=== PATIENT | female | born 1960 | race Caucasian/White ===

== ENCOUNTER 2017-08-07 09:20 | Inpatient (IN) | payer OTHER ==
[~2017-08-07] VITALS: Ht 175.3 cm; Wt 132.9 kg
[~2017-08-07 09:20] MED LIST: ATENOLOL50 MG PO; CYCLOBENZAPRINE10 MG PO; DAYPRO600 MG PO; ESTRADIOL1 MG PO; GLUCOPHAGE850 MG PO; LOSARTAN-HCTZ1 EACH PO; METFORMIN HCL500 MG PO; NEURONTIN600 MG PO; OMEPRAZOLE20 MG PO; PERCOCET 5-3251 EACH PO; PREDNISONE20 MG PO; ROBAXIN-750750 MG PO; ROBAXIN500 MG PO; TIZANIDINE HCL4 MG PO; TRAMADOL HCL50 MG PO; VITAMIN D35000 UNI1 PO; ZANAFLEX4 MG PO; ZYRTEC10 MG PO
--- NOTE | 2017-08-13 11:56 | NUR ---
[facility] PT CARE NOTE ATTEMPTED TO CALL PT 08/10/17, NO ANSWER, MESSAGE LEFT. RECIEVED PHONE CALL FROM PT TODAY. THIS IS A 56 YEAR OLD FEMALE PT THAT IS SCHEDULED FOR A LEFT TOTAL KNEE ON 08/14/[address] WM PIZARRO. PT STATES SHE LIVES IN HER [facility] HOME WITH STAIRS TO ENTER IT WITH HER WHO IS GOING TO BE HELPING HER AFTER SURGERY AND HOSPITALIZATION. PT STATES THEY HAVE A TUB/SHOWER COMBINATION AND SHE IS GETTING A SHOWER SEAT. ALREADY HAS A HAND HELD SHOWERHEAD AND HER WAS GETTING HER A FRONT WHEELED WALKER. PT DID HAVE AN APPT AT THE [facility] OP PT AND IS SET UP FOR AN APPT AFTER SHE GETS OUT OF THE HOSPITAL. DENIES FURTHER QUESTIONS, CONCERNS, NEEDS, OR ISSUES. WILL FOLLOW PT DURING HER STAY IN THE HOSPITAL.
--- NOTE | 2017-08-14 09:18 | NUR ---
08/14/17 0918 Ruby Vides REPORT FROM PHOTOGRAPH EDITOR.
--- NOTE | 2017-08-14 11:17 | NUR ---
PT TO FLOOR ON STRETCHER WITH RN LUIS AND . PT AWAKE BUT DROWSY. EASILY AWAKENS TO VOICE. ANSWERED ALL QUESTIONS. DENIES PAIN. SENSATION TO L1. CAN MOVE RIGHT LEG. IVF @125. DENIES NEED TO VOID. WATER AT BEDSIDE. DOES NOT WANT ANY YET. DENIES NAUSEA.
--- NOTE | 2017-08-14 13:24 | NUR ---
PT VITALS AND SITE ASSESSED AGAIN. STILL CDI. VS STABLE. ADMINISTERED MEDS.PT DENIES PAIN OR NAUSEA. HAS NOW TAKEN A FEW SMALL SIPS OF WATER.
--- NOTE | 2017-08-14 14:04 | NUR ---
MET WITH PT'S DAUGHTER AND STUART IN LONG. STUART A LITTLE ANXIOUS, DAUGHTER COPING WELL. OUTLINED MORNING, THEY SEEMED TO BE GOING TO BREAKFAST. WILL CONTINUE TO FOLLOW
--- NOTE | 2017-08-14 14:15 | OR ---
[facility] [address], [place] [address] Signed DATE OF PROCEDURE: 08/14/17 PREOPERATIVE DIAGNOSIS: End-stage osteoarthritis of the left knee. POSTOPERATIVE DIAGNOSIS: End-stage osteoarthritis of the left knee. PROCEDURE Left total knee arthroplasty with an Attune posterior stabilized total knee. We used a size 7 TS femur, a size 7 tibial tray, a 5 mm PS fixed bearing poly and a 35 mm all poly patella. SURGEON: Rob Pizarro MD. ANESTHESIA Spinal with sedation. There were no specimens or complications. TOURNIQUET TIME: 90 minutes. DESCRIPTION OF PROCEDURE The patient was taken to the operating room. After anesthesia was induced and the airway gently supported, left lower extremity was positioned, prepped and draped in a routine sterile fashion. The leg was exsanguinated with an Esmarch bandage. Pneumatic tourniquet was inflated to 300 mmHg pressure. A straight anterior approach was made to the knee, beginning at the tibial tubercle extending over the anterior aspect of the patella and proximally over the distal quad tendon. The skin was divided sharply. Subcutaneous tissue was bluntly spread and a small medial flap was created. An anteromedial arthrotomy was performed. The patella was turned on edge and about 10 mm were trimmed off the posterior aspect of the patella. We then placed the lollipop up for the 35 mm patellar button over the patella and was happy with the alignment and coverage. We then placed drill holes for the 35 mm all poly patella. We then snapped the trial into place and finally we had completely reconstituted the patellar height. The trial was then removed. The patella was slid into the lateral recess and the knee was gently flexed. Using the [employer] navigation system, we digitized the distal aspect of the femur. Distal femoral resection was accomplished in neutral varus valgus about 3 degrees of flexion and removing about 11 mm off the medial side. After removing the distal wafers, the navigation system was transitioned to the proximal tibia. Again, following the [place] navigation prompts, we digitized the proximal tibia and we then resected the proximal tibia in neutral varus valgus, about 3 degrees of posterior slope per the Attune surgical protocol and removing about 5 mm off the medial side. The tibial wafer was then removed and sized to be a size 7. We then placed the femoral sizing jig on the distal Electronically Signed By: ROB PIZARRO MD 08/14/17 1415 PATIENT NAME: MONICO ALBRIGHT OPERATIVE REPORT DATE OF : 62 PHYSICIAN: ROB PIZARRO MD REPORT #: [id number] REPORT IS CONFIDENTIAL AND NOT TO BE RELEASED WITHOUT AUTHORIZATION [facility] [address], [place] [address] Signed femur and again the femur sized to a size 7. The 4 in 1 cutting block was placed on the distal femur and anterior, posterior, and chamfer cuts were made. The notch cutting block was then centered so had good coverage of the prosthesis and the notch was cut out. The femoral trial was placed on the distal femur and the lug holes were drilled. We then placed the tibial trial in the proximal tibia with a 5 mm poly. We had good alignment, good position, excellent stability. The previous flexion contracture appeared to be completely corrected. We marked the alignment rotational position of the tibial tray and then removed all the trials. The proximal tibia was then prepared using the standard reamer and broach. The knee was copiously irrigated and meticulously dried. Antibiotic cement was mixed and used to secure the tibial component. The femoral component and the patellar component. We placed a 5 mm trial poly in the knee and held the knee in full extension. Once the cement had cured, marginal C mental fights were sought and removed and the knee was copiously irrigated. Again, we had a very snug knee with full extension and excellent flexion. We therefore removed the trial poly, inserted the real 5 mm poly implant and impacted it to the tibial tray. We then irrigated the incision and a routine wound closure was accomplished. A sterile dressing was applied and the patient was awakened and take to the recovery room and arrived in stable condition. Counts were correct and antibiotic protocols were followed. Rob Pizarro MD WFB/Modl /[id number] cc: Hector Lee MD Electronically Signed By: ROB PIZARRO MD 08/14/17 1415 PATIENT NAME: MONICO ALBRIGHT OPERATIVE REPORT DATE OF : 62 PHYSICIAN: ROB PIZARRO MD REPORT #: [id number] REPORT IS CONFIDENTIAL AND NOT TO BE RELEASED WITHOUT AUTHORIZATION
--- NOTE | 2017-08-14 16:46 | NUR ---
PT C/O ITCHING "ALL OVER". GAVE BENADRYL 12.5 MG IV PRN. PT SITTING IN BED WITH HOB ELEVATED.
--- NOTE | 2017-08-14 17:03 | NUR ---
ADMINISTERED 0.6 DILAUIDID FOR 6/10 PAIN AFTER PHYS. THER. UNTIL HOLD IS OFF OF ORAL MEDS. PT SITTING UP EATING DINNER.
--- NOTE | 2017-08-14 18:53 | NUR ---
PT IN BED TALKING TO FAMILY. DENIES NEED FOR PAIN MEDICATION.
--- NOTE | 2017-08-14 19:59 | NUR ---
PT ASSESSMENT COMPLETE. PT RESTING IN BED WITH AT BEDSIDE. PT ALERT AND ORIENTED, PLEASANT AND IN GOOD SPIRITS THIS EVENING. PT DENIES ANY N/V, TOLERATING PO WELL. PT SALINE LOCKED, PATENT AND INTACT. PT RATES PAIN IN LEFT KNEE 02/19, SCHEDULED TORADOL, TYLENOL AND PRN OXYCODONE GIVEN. DRESSING TO LEFT KNEE IS C/D/I, PT HAS GOOD CMS. PT HAS HX NEUROPATHY, STATES NUMBNESS IS BACK TO BASELINE. PT ON ROOM AIR, SATS 96% PER CONTINUOUS PULSE OXIMETER. CALL LIGHT WITHIN REACH. PT DENIES ANY FURTHER NEEDS AT THIS TIME.
--- NOTE | 2017-08-14 20:46 | NUR ---
GOT PATIENT FRESH ICE WATER AND UPDATED BOARDS.
--- NOTE | 2017-08-14 21:50 | NUR ---
ASSISTED PT UP TO BATHROOM WITH x1 ASSIST USING FWW, PT TOLERATED AMBULATION WELL. VOIDING WITHOUT DIFFICULTY. PT BACK IN BED, SCD IN PLACE. PT C/O LEFT KNEE PAIN 06/21, 2 TABS DILAUDID GIVEN WELL ICE PACKS PLACED ON KNEE FOR COMFORT. PT C/O ITCHING, IV BENEDRYL GIVEN. IV PATENT AND INTACT. DRESSING C/D/I. CALL LIGHT WITHIN REACH. PT DENIES ANY FURTHER NEEDS AT THIS TIME.
--- NOTE | 2017-08-15 00:03 | NUR ---
PATIENT DOING WELL. IN BED ASLEEP
--- NOTE | 2017-08-15 00:16 | NUR ---
PT SLEEPING, RR EVEN AND UNLABORED. PT APPEARS COMFORTABLE AT THIS TIME. SATS 93% ON ROOM AIR. CALL LIGHT WITHIN REACH.
--- NOTE | 2017-08-15 01:24 | NUR ---
PT C/O ITCHING, NUBAIN GIVEN. PT RATES LEFT KNEE PAIN 4/10, 2 TABS OXYCODONE GIVEN. DRESSING IS C/D/I, ICE PACKS IN PLACE. CALL LIGHT WITHIN REACH. PT DENIES ANY FURTHER NEEDS AT THIS TIME.
--- NOTE | 2017-08-15 03:33 | NUR ---
PT SLEEPING, RR EVEN AND UNLABORED. PT APPEARS COMFORTABLE AT THIS TIME. SATS 95% ON ROOM AIR. CALL LIGHT WITHIN REACH.
--- NOTE | 2017-08-15 04:45 | NUR ---
PT HAD AN UNEVENTFUL NIGHT. PT AMBULATES WITH x1 ASSIST USING FWW, TOLERATES WELL. PT ON ROOM AIR, SALINE LOCKED, DENIED N/V THIS SHIFT. PT RECEIVING SCHEDULED TYLENOL AND TORADOL FOR PAIN, ALSO GETTING PRN OXYCODONE AND PO DILAUDID. DRESSING C/D/I, ICE PACKS IN PLACE. SCD IN PLACE. PT VOIDING WELL.
--- NOTE | 2017-08-15 07:19 | NUR ---
VISITED WITH PT FOLLOWING SURGERY. RESTING IN BED, WITH TOWEL WRAPPED AROUND HER HEAD. SHE SAID SHE HAS NO PAIN. I ENCOURAGED HER TO TACKLE HER THERAPY HEAD ON AND KNOW THERE WILL BE SOME TOUGH DAYS AHEAD. HAD PRAYER WITH PT, WILL CONTINUE TO FOLLOW NEEDED
--- NOTE | 2017-08-15 07:55 | NUR ---
PATIENT ASLEEP SO I WILL CHECK BACK LATER.
--- NOTE | 2017-08-15 08:24 | NUR ---
PT SITTING UP IN BED EATING BREAKFAST. RATES PAIN 2/10 RIGHT NOW BUT KNOWS IT WILL GO UP WITH PHYSICAL THERAPY. TOOK PRN OXY IN ANTICIPATION. TALKED ABOUT BS CHECKS AND METFORMINA ND GABAPENTIN AND WILL CALL DR PIZARRO TO DISCUSS.
[2017-08-15] MEDS ORDERED: FLONASE ALLERG9.9 ML NAS (10:43)
[2017-08-15] MEDS ORDERED: TRIAMCINOLONE A15 G1 TOP (10:44)
--- NOTE | 2017-08-15 11:00 | NUR ---
PT WORKING WITH PHYS. THER.
--- NOTE | 2017-08-15 11:35 | NUR ---
Medications reconciled by pharmacist using patient's pharmacy records and patient interview. Significant discrepancies found, namely gabapentin dose, 1200mg PO TID vs 300mg TID. Patient also takes metformin, cetirizine, cholecalciferol and tizanidine. The nortriptyline 10mg that was ordered and given at hs is not a current medication for her. I called Dr Nazario's office, left message with sales and marketing director 08/15/[address] @ [address] Nazario or his nurse to call me back to clarify
--- NOTE | 2017-08-15 11:55 | NUR ---
PT AWAKE IN BED. TOOK PT TO BR. UPDATED W/B. EMPTYED GARBAGE. AM CARE. PICKED UP ROOM.
--- NOTE | 2017-08-15 12:01 | NUR ---
PT CONTINUES TO BE NAUSEOUS AND LUNCH HAS ARRIVED. PT ASKED FOR MEDS. GIVEN ZOFRAN AND EMESIS BAG. PT DENIES NEED FOR PAIN MEDICATION.
--- NOTE | 2017-08-15 12:36 | NUR ---
PT RESTING IN BED. SHE MENTIONED THAT SHE HAD A REACTION TO SOME PAIN MEDS, AND HAD A SET BACK TODAY. WORKING TO CHANGE MEDS. OTHERWISE SHE SEEMS TO BE COPING WELL. PT REQUESTED PRAYER, WILL FOLLOW NEEDED
--- NOTE | 2017-08-15 15:55 | NUR ---
ASSISTED PT BACK TO BED AFTER SITTING IN CHAIR SINCE FLOORING MACHINE OPERATOR. PT ASKED FOR PAIN MEDS AND TUMS. CALLED DR PIZARRO AND HE VERBALY ORDERED TWO TUMS NOW. ADMINISTERED TO PT ALONG WITH PAIN MEDS AND ZOFRAN FOR NAUSEA.
--- NOTE | 2017-08-15 16:40 | NUR ---
PT RESTING IN BED WITH TV ON.
--- NOTE | 2017-08-15 18:50 | NUR ---
patient resting in bed watching TV with in room. call button in reach. no other needs at this time. fresh ice water given.
--- NOTE | 2017-08-15 19:43 | NUR ---
PATIENT SITTING UP WATCHING TV. WHITEBOARD UPDATED, ROOM TIDIED. GOT NEW ICE PACKS AND PUT ON/ AROUND AFFECTED KNEE.
--- NOTE | 2017-08-15 20:00 | NUR ---
RECEIVED REPORT AT 1900. FOUND PT IN BED WATCHING TV. PT DENIED PAIN AT THAT TIME. PT SEEMED IN GOOD SPIRITS.
--- NOTE | 2017-08-15 22:27 | NUR ---
V/S ARE WDL, PAIN IS WELL CONTROLLED WITH PRN PAIN MEDS AVAILABLE. ALL LOBES ARE CLEAR, PT IS PASSING GAS, DRESSING ON L KNEE IS C/D/I, ICE PACKS X3 APPLIED. I&O ARE ADEQUATE. NO NEW ISSUES NOTED
--- NOTE | 2017-08-15 23:57 | NUR ---
PT IS SLEEPING AT THIS TIME.
--- NOTE | 2017-08-15 23:59 | NUR ---
PATIENT IN BED SLEEPING.
--- NOTE | 2017-08-16 02:00 | NUR ---
PT IS SLEEPING
--- NOTE | 2017-08-16 02:10 | NUR ---
PT RECEIVED 5MG OF OXY AND SCHEDULED TORADOL IV. PT AT THIS TIME IS SLEEPING.
--- NOTE | 2017-08-16 02:10 | NUR ---
NURSE IN ROOM
--- NOTE | 2017-08-16 03:43 | NUR ---
PATIENT SLEEPING COMFORTABLY
--- NOTE | 2017-08-16 04:00 | NUR ---
PT IS SLEEPING
--- NOTE | 2017-08-16 04:44 | NUR ---
REFILLED PATIENT WATER, MADE NEW ICE PACKS FOR AFFECTED KNEE.
--- NOTE | 2017-08-16 05:32 | NUR ---
PT SLEPT MOST OF THE NIGHT. PAIN WAS WELL CONTROLLED WITH PRN AND SCHEDULED PAIN MEDS. V/S ARE WDL, I&O ARE ADEQUATE, DRESSING ON LEFT KNEE IS C/D/I, ICE PACKS X3 ON LEFT KNEE. NO NEW ISSUES NOTED.
--- NOTE | 2017-08-16 07:15 | NUR ---
BEDSIDE REPORT RECEIVED FROM MORAIMA FULLER. PT AWAKE, SITTING UP IN BED. PT DENIES NAUSEA. STATES PAIN IS 2/10, CRAMPING IN KNEE. PT HAS ORDERED BREAKFAST, CALL LIGHT IN LAP. NO ADDITIONAL REQUESTS AT THIS TIME.
--- NOTE | 2017-08-16 07:58 | NUR ---
IN PT'S ROOM. PT CBG 112. PT BREAKFAST TRAY IN ROOM. CALL LIGHT IN REACH.
--- NOTE | 2017-08-16 09:20 | NUR ---
PT. COMPLAINED OF NAUSEA. ADMINISTERED ZOFRAN. WILL REASSESS. PT. SITTING UPRIGHT IN BED WITH IN ROOM.
--- NOTE | 2017-08-16 10:15 | NUR ---
MORNING ASSESSMENT COMPLETE. PT SITTING UP IN BED, STATING STOMACH "STILL QUEASY, TRYING TO REST". PT CONTINUES TO DENY PAIN AT THIS TIME. LUNGS CLEAR THROUGHOUT. PT HAS ACTIVE BOWEL TONES X 4. PT ALERT AND ORIENTED X 3. PT HAS NO REQUESTS AT THIS TIME, HAS CALL LIGHT IN REACH.
--- NOTE | 2017-08-16 11:20 | NUR ---
PT. UP WITH PHYSICAL THERAPY ON NUSTEP. TOLERATED WELL. DID NOT COMPLAIN OF PAIN. NOW BACK IN ROOM SITTING IN CHAIR WITH CALL LIGHT IN REACH.
--- NOTE | 2017-08-16 11:40 | NUR ---
PT IS UP AND HEADED TO Jodi CONNELL WITH THERAPIST TRACEE. SHE MENTIONED HOW GOOD IT FEELS TO BE UP AND WALKING. HE WAS VERY AFFIRMING, WILL CONTINUE TO FOLLOW NEEDED
[2017-08-16] MEDS ORDERED: XARELTO10 MG PO (12:02)
[2017-08-16] MEDS ORDERED: OXYCODONE HCL10 MG PO (12:03)
[2017-08-16] MEDS ORDERED: DILAUDID4 MG PO (12:04)
[2017-08-16] MEDS ORDERED: ZOFRAN ODT4 MG SL (12:04)
--- NOTE | 2017-08-16 12:08 | NUR ---
INFORMED PT THAT DISCHARGE ORDERS ARE IN PLACE. PT STATES SHE IS READY TO LEAVE, WILL CALL FOR RIDE. PT STATING PAIN IS OKAY, REFUSES OXYCODONE ADMINISTRATION AT THIS TIME. PT STILL EXPERIENCING SOME NAUSEA, ABLE TO EAT 75 % OF LUNCH. EDUCATED THAT ZOFRAN PRESCRIPTION IS ORDERED FOR DISCHARGE. PT HAS CALL LIGHT IN REACH.
--- NOTE | 2017-08-16 12:27 | NUR ---
PHARMACIST ROSEANN IN PT ROOM PROVIDING DISHCARGE INSTRUCTIONS REGARDING MEDICATIONS, SIDE EFFECTS, RISKS, PRECAUTIONS VERBALLY AND WRITTEN. PT ASKING QUESTIONS, QUESTIONS ANSWERED. IV TORADOL ADMINISTERED, PT STATING PAIN IS 3/10 AT THIS TIME.
--- NOTE | 2017-08-17 11:59 | NUR ---
FAXED CHART NOTES INCLUDING FACESHEET, ORDER, H AND P, OP NOTE, PROG NOTES, IMAGING, PT EVAL AND NOTES TO [facility] OP PT. CALLED AND SPOKE WITH PRICILLA.
--- NOTE | 2017-08-21 07:37 | DS ---
[facility] [address] [place], [place] [address] Signed DATE OF DISCHARGE: 08/16/17 FINAL DIAGNOSIS AT DISCHARGE: End-stage osteoarthritis, left knee. PROCEDURE: Left total knee arthroplasty. ATTENDING PHYSICIAN: Real Nazario MD HISTORY OF PRESENT ILLNESS The patient has a long history of degenerative arthritis in both knees. She previously had a successful right total knee arthroplasty and presented for a left total knee arthroplasty. She no longer had significant symptomatic relief with numerous conservative modalities. HOSPITAL COURSE The patient was admitted to Day Surgery. On the 14 of August, she was taken to the operating room. She underwent placement of an Attune posterior stabilized total knee arthroplasty with a size 7 PS femoral component, a size 7 tibial tray, a 5 mm PS poly and a 35 mm patellar button. Postoperatively, she has done well. She currently gets adequate pain relief by alternating oral Dilaudid and oral Oxycodone. She has had a little nausea, but that has apparently been well controlled with the Zofran. She has passed all of her physical therapy performance criteria and is ready to go home. Discharge her home to activity as tolerated with a referral to outpatient physical therapy 3 times a week for 4 weeks. We will ask to see us back in 4 weeks and we will continue her on Oxycodone and Dilaudid for pain and order her some Zofran ODT to be taken as needed for nausea. We will also keep on Xarelto 10 mg once a day for DVT prophylaxis. MD ISHA MccraryB/Modl /[id number] Electronically Signed By: REAL NAZARIO MD 08/21/17 0737 PATIENT NAME: MONICO ALBRIGHT DISCHARGE SUMMARY DATE OF : 62 PHYSICIAN: REAL NAZARIO MD REPORT #: [id number] REPORT IS CONFIDENTIAL AND NOT TO BE RELEASED WITHOUT AUTHORIZATION [address] [address] Signed cc: Hector Lee MD Electronically Signed By: REAL NAZARIO MD 08/21/17 0737 PATIENT NAME: MONICO ALBRIGHT DISCHARGE SUMMARY DATE OF : 62 PHYSICIAN: REAL NAZARIO MD REPORT #: [id number] REPORT IS CONFIDENTIAL AND NOT TO BE RELEASED WITHOUT AUTHORIZATION
== END 2017-08-16 12:45 | disposition home or self-care (01) | DRG 470 ==
LOC: DSVR 08-14 05:40 → MS 08-14 06:45
PROVIDERS: ADMIT Orthopaedic Surgery
PROC: 0SRD0J9 Replacement of Left Knee Joint with Synthetic Substitute, Cemented, Open Approach (ICD-10-PCS; principal; 2017-08-14 06:45)
DX: M17.12 Unilateral primary osteoarthritis, left knee (principal)
CPT/HCPCS: 01402; 36415; 73560; 80048; 85025; 90674; 97110; 97116; 97161; 97162; C1713; C1776; G0008; J0690; J1170; J1200; J1885; J2274; J2300; J2405; J2704; J2765; J3010; J7120

== ENCOUNTER 2021-04-04 22:53 | Emergency (ER) | payer BC, SELFPAY ==
[~2021-04-04] VITALS: Ht 175.3 cm; Wt 118.2 kg
[~2021-04-04 22:53] MED LIST changes: +DILAUDID4 MG PO; +FLONASE ALLERG9.9 ML NAS; +OXYCODONE HCL10 MG PO; +TRIAMCINOLONE A15 G1 TOP; +XARELTO10 MG PO; +ZOFRAN ODT4 MG SL
--- OUTSIDE RECORDS SUMMARY | 2021-04-04 22:56 | XMS ---
PreManage Notification: MONICO ALBRIGHT Security Traveling Crane Operator Events No recent Security Events currently on file [facility] There are no care providers on record at this time. Jillain has no Care Guidelines for this patient. April VISIT COUNT (12 MO.) 1 [facility] TOTAL 1 NOTE: Visits indicate total known visits. ED/UCC VISIT TRACKING (12 MO.) 04/04/2021 22:[address] [place] TYPE: Emergency COMPLAINT: - BACK PAIN INPATIENT VISIT TRACKING (12 MO.) No inpatient visits to display in this time frame [email or web address]
[2021-04-05] MEDS ORDERED: PERCOCET 5-3251 EACH PO (00:23)
== END 2021-04-05 00:58 | disposition home or self-care (01) ==
LOC: ED 22:53
DX: M54.5 Low back pain (principal); G89.29 Other chronic pain; I10 Essential (primary) hypertension; E11.40 Type 2 diabetes mellitus with diabetic neuropathy, unspecified; Z88.8 Allergy status to other drugs, medicaments and biological substances; Z88.1 Allergy status to other antibiotic agents; Z88.5 Allergy status to narcotic agent; Z79.899 Other long term (current) drug therapy; Z79.84 Long term (current) use of oral hypoglycemic drugs
CPT/HCPCS: 96372; 99283; J1170

== ENCOUNTER 2021-09-03 12:42 | Inpatient (IN) | payer BC ==
[~2021-09-03] VITALS: Ht 175.3 cm; Wt 120.2 kg
[~2021-09-03 12:42] MED LIST changes: +COZAAR50 MG PO; +ESTRACE0.5 MG PO; -GLUCOPHAGE850 MG PO
--- OUTSIDE RECORDS SUMMARY | 2021-09-03 12:46 | XMS ---
Alessia Notification: MONICO ALBRIGHT Security Audio Visual Aide Events No recent Security Events currently on file CRITERIA MET - [facility] CARE PROVIDERS NANI MONTOYA [facility] 04/05/2021-Current PHONE: [phone] Jillian has no Care Guidelines for this patient. April VISIT COUNT (12 MO.) 2 [facility] TOTAL 2 NOTE: Visits indicate total known visits. 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
[2021-09-03] MEDS ORDERED: GLIPIZIDE ER5 MG PO (13:01)
[2021-09-03] MEDS ORDERED: HYDROCHLOROTH12.5 MG PO (13:02)
--- NOTE | 2021-09-03 16:20 | NUR ---
PT ARRIVED TO THE FLOOR VIA STRETCHER FROM ER. PT ABLE TO STAND AND TRANSFER TO BED. PT TOLERATED WELL AND STATED THAT PAIN WAS 4/10.
--- NOTE | 2021-09-03 17:15 | NUR ---
THIS RN IN PTS ROOM TO GIVE PT EVENING MEDS. PT STATES THAT HER BLOOD SUGARS GENERALLY RUN UNDER 100. PTS BLOOD SUGAR 150- PTS VANCO MIXED IN DEXTROSE. PT TO ORDER DINNER. THIS RN OUTLINED PTS CELLULITIS ON LEFT LOWER LEG. PT REPORTS THAT SHE HAS "HEALING DIABETIC WOUNDS" ON LEFT AND RIGHT GREATER TOES.
--- NOTE | 2021-09-03 19:30 | NUR ---
PT SHIFT REPORT RECEIVED FROM NUBIA VALERA. NUBIA VALERA GOING INTO ROOM TO START ORDERED IV FLUID BOLUS.
--- NOTE | 2021-09-03 19:31 | NUR ---
PT WITH DOWNWARD TRENDING BLOOD PRESSURE AND NO URINE OUTPUT. DR SEGURA NOTIFIED. ORDERS TO ADMISNTER 1 L LACTATED RINGER OVER ONE HOUR. READ BACK TO VERIFY. BOLUS STARTED BY PRIMARY NURSE.
--- NOTE | 2021-09-03 20:30 | NUR ---
IV FLUID BOLUS COMPLETED. VS COMPLETED. PT IS DROWSY. NO NEEDS AT THIS TIME. CALL LIGHT IN REACH.
--- NOTE | 2021-09-03 21:52 | NUR ---
ASSESSMENT, VS AND I&O COMPLETED. GCS 15, A&O X4 BUT DROWSY. LUNGS CLEAR, HEART TONES REGULAR. ABD SOFT, NONTENDER, BOWEL TONES ACTIVE. CMS INTACT. LLE HAS 2+ EDEMA, REDNESS WITHIN LINES. PT DENIES PAIN. IVs WNL, CDI, FLUSHED WELL. SCABBED AREAS NOTED ON BOTH FEET AT GREAT TOE. ICE WATER PROVIDED. NO OTHER NEEDS. CALL LIGHT IN REACH.
--- NOTE | 2021-09-04 00:06 | NUR ---
SCHEDULED MED PROVIDED. NO OTHER NEEDS. CALL LIGHT IN REACH.
--- NOTE | 2021-09-04 01:45 | NUR ---
SPOKE TO JULIO FROM TELEPHARMACY REGARDING CURRENT ORDERS FOR IV VANCO- SPECIFICALLY DOSE AND TIME OF ADMINISTRATION BETWEEN LOADING DOSE IN ER AND FIRST DOSE ON MEDSURGE FLOOR. PER JULIO, DOSAGE AND TIME OF VANCO ADMINISTRATION WNL BASED ON pt's AGE, WEIGHT, LAB VALUES, ECT.
--- NOTE | 2021-09-04 02:20 | NUR ---
ASSESSMENT COMPLETED. PT COMPLAINS OF 4/10 PURDY, PRN PAIN MED PROVIDED. PT STATES SHE IS FEELING MUCH BETTER. VS AND I&O COMPLETED. RLE EDEMA 1+, LLE EDEMA 2+ WITH REDNESS, GENERALIZED EDEMA IN HANDS. IVs WNL. NO OTHER NEEDS AT THIS TIME. CALL LIGHT IN REACH.
--- NOTE | 2021-09-04 04:00 | NUR ---
PT RESTING IN BED. CALL LIGHT IN REACH.
--- NOTE | 2021-09-04 05:16 | NUR ---
VS AND I&O COMPLETED. PT UP TO BR, SBA AND BACK TO BED. ICE WATER PROVIDED. NO OTHER NEEDS. CALL LIGHT IN REACH.
--- NOTE | 2021-09-04 07:51 | NUR ---
this rn received report from angi jane. pt appears to be doing better this am, pt still reports having a headache
--- NOTE | 2021-09-04 08:15 | NUR ---
this rn in pts room to give morning meds. pt states that her headache is still there, this rn to provide pt with 650mg of tylenol at this time.
--- NOTE | 2021-09-04 08:30 | NUR ---
PT EATING BREAKFAT IN BED. UPDATED WHITE BOARD. OFFERED WARM CLOTH, WHICH PT DECLINED. PT DECLINED TO GET INTO CHAIR AT THIS TIME, BUT SAYS THEY WOULD LIKE TO BEFORE LUNCH. CALL LIGHT WITHIN REACH. NO FURTHER NEEDS AT THIS TIME. FRESH ICE WATER.
--- NOTE | 2021-09-04 09:16 | NUR ---
ASSISTED PT IN PLUGGING SCD BACK IN. VS AND I&O'S DONE. DAUGHTER IN ROOM. CALL LIGHT WITHIN REACH. NO FURTHER NEEDS AT THIS TIME.
--- NOTE | 2021-09-04 10:30 | NUR ---
THIS RN IN PTS ROOM TO GIVE PT MEDS. PT STATES THAT HER PAIN IN HER LEG IS MINIMAL BUT DOES FEEL "TIGHT" PT DOES REPORT HAVING CHRONIC BACK PAIN. PTS DAUGHTER AT BESIDE AT THIS TIME. THIS RN RECEHCKED PTS TEMP- 99.2- APPEARS TO BE TRENDING DOWN AT THIS TIME.
--- NOTE | 2021-09-04 12:15 | NUR ---
this rn in pts room to give pt her insulin. pt surprised by how high her insulin was. this rn discussed with pt that pt is celena siegel mixed in dextrose- pt stated understanding
--- NOTE | 2021-09-04 14:09 | NUR ---
PT DOES NOT LOOK WELL. PT'S FACE IS FLUSHED. RAPID RR. CALL LIGHT WITHIN REACH, NO FURTHER NEEDS AT THIS TIME. MORAIMA DELACRUZ NOTIFIED OF HIGH TEMP AND OF LITTLE INTAKE.
--- NOTE | 2021-09-04 14:44 | NUR ---
THIS RN RECEIVED REPORT FROM LITTLE RUSSO THAT PT HAD A TEMP OF 102.2 ORALLY. THIS RN IN TO CHECK ON PT. PT STATES THAT SHE IS NOT FEELING WELL. THIS RN RETOOK PTS TEMP AXIALLRY DUE TO PT JUST HAVING SIPPED ON COLD WATER. 102.8 THIS RN NOTIFIED MD- OF CLEAR LUNG SOUNDS AND CURRENT VITALS. NEW ORDER- NO BLOOD CULTURE BUT INCREASE TYLENOL TO 1000MG Q8.
--- NOTE | 2021-09-04 14:50 | NUR ---
THIS RN IN PTS ROOM TO PROVIDE PT WITH 1000MG OF TYLENOL. THIS RN ALSO PROVIDED PT WITH COLD PACKS UNDER HER ARMS AND SOME KERRY CRACKERS FOR COMFORT. PT DENIES NAMINDASEA AT THIS TIME.
--- NOTE | 2021-09-04 16:00 | NUR ---
THIS RN IN PTS ROOM TO RECHECK PTS FEVER. FEVER DOWN TO 99.9. PT APPEARS TO BE FEELING BETER AND IS IN BETTER SPIRITS. THIS RN REFRESHED PTS WATER
--- NOTE | 2021-09-04 16:52 | NUR ---
BED LINENS CHANGED. SHOWER PREPPED FOR PT. PT NOW IN SHOWER. PT INDEPENDENT IN SHOWER. ROOM TIDIED. WILL CHECK BACK IN WITH PT SHORTLY. NO FURTHER NEEDS AT THIS TIME.
--- NOTE | 2021-09-04 18:16 | NUR ---
PT LAYING IN BED WATCHING TV. PT JUST FINISHED DINNER. CALL LIGHT WITHIN REACH, NO FURTHER NEEDS AT THIS TIME.
--- NOTE | 2021-09-04 19:53 | NUR ---
REPORT RECEIVED FROM DAY SHIFT RN. PT LYING IN BED ALERT AND ORIENTED WATCHING TV. DENIES NEEDS AT THIS TIME. WHITE BOARD UPDATED. CALL LIGHT IN REACH.
--- NOTE | 2021-09-04 21:15 | NUR ---
EVENING ASSESSMENT COMPLETE. SCHEDULED MEDS ADMINISTERED PER EMAR. PRN FOR CHRONIC BACK PAIN ADMINISTERED PER PT REQUEST. PT REPORTS DRY COUGH R/T ALLERGIES PREVENING HER FROM RESTING. DR. SEGURA NOTIFIED. NEW ORDERS RECEIVED. LLE RED AND WARM TO TOUCH. REDNESS WITHIN OUTLINE FROM ADMISSION. EDEMA NOTED. CMS INTACT. LLE ELEVATED ON PILLOWS. IV ABX INFUSING WNL. PT DENIES PAIN WITH INFUSION, SITE WNL. FRESH WATER PROVIDED. PT DENIES QUESTIONS OR CONCERNS. CALL LIGHT IN REACH.
--- NOTE | 2021-09-04 22:30 | NUR ---
SCHEDULED MED FOR C/O COUGH ADMINISTERED. PRN FOR COUGH ALSO PROVIDED. PT REPORTS FEELING SWEATY. TEMP DOWN TO 99.5 FROM 99.8. PT REFUSES DRY LINEN/GOWN AT THIS TIME.
--- NOTE | 2021-09-05 00:39 | NUR ---
PT RESTING IN BED WITH EYES CLOSED. RESPIRATIONS EVEN. NO APPARENT DISTRESS.
--- NOTE | 2021-09-05 05:28 | NUR ---
Patient has a temp. of 100. RN was notified and is in room. Call light is in reach.
--- NOTE | 2021-09-05 05:45 | NUR ---
VS AND I&0 COMPLETE. PT DENIES PAIN. ELEVATED TEMP NOTED. PRN ADMINISTERED PER EMAR FOR TEM. LLE ELEVATED ON PILLOW. SCD ON RLE. BREAKFAST ORDERED. PT DENIES FURTHER NEEDS. CALL LIGHT IN REACH.
--- NOTE | 2021-09-05 07:20 | NUR ---
this rn received report from inna jane. pt awake this am, states doing okay just spiked another fever and a bit frustrated with that.
--- NOTE | 2021-09-05 07:52 | NUR ---
this rn in pts room to get pts blood sugarf- wnl- pt states that she is doing okay at this time.
--- NOTE | 2021-09-05 08:25 | NUR ---
PATIENT IS RESTING IN BED. PLACED SCD BACK ON HER RIGHT LEG. PATIENT IS NOW EATING BREAKFAST AND DOES NOT NEED ANYTHING AT THIS TIME. CALL LIGHT IN REACH.
--- NOTE | 2021-09-05 08:40 | NUR ---
HTIS RN IN PTS ROOMTO GIVE PT HER MORING MEDS. PT STATES THAT SHE IS DOING GOOD. FEVER DOWN TO NORMAL LEVELS THIS AM. PTS LEFT LEG APPEARS TO BE IMPROVING DUE TO REDDNESS RECEEDING FROM LINE DRAWN BY THIS RN ON ADMIT. PT REPORTS ONLY PIAN/ TIGHTNESS WHEN SHE STANDS UP DUE TO "BLOOD RUSHING TO THE AREA" PT HAS NO OTHER COMPLAINTS AT THIS TIME
--- NOTE | 2021-09-05 09:38 | NUR ---
SPOKE WITH PATIENT IN ROOM. PATIENT LIVES WITH SPOUSE. HAS 7 STEPS INTO HOME. DOES NOT USE DME. HAS A CANE AT HOME IF NEEDED. DRIVES. IS EMPLOYED. CAN AFFORD MEDS/FOOD/UTILITIES. PLANS TO GO HOME AT DISCHARGE AND FEELS SAFE TO DO SO. PLANNING TO USE [facility] HER CURRENT IS CLOSING. CAN NOT THINK OF ANYTHING NEEDED AT DISCHARGE. FAMILY WILL DRIVE HER HOME. NO BARRIERS AT THIS TIME FOR D/C HOME.
--- NOTE | 2021-09-05 09:44 | NUR ---
ASSISTED PATIENT TO BATHROOM AND BACK TO BED. PATIENT VOIDED 700ML. TOOK PATIENTS VITALS AND ALL WERE IN NORMAL RANGE. SHE DOES NOT NEED ANYTHING AT THIS TIME. CALL LIGHT IN REACH.
[2021-09-05] MEDS ORDERED: EFFEXOR XR37.5 MG PO (10:44)
[2021-09-05] MEDS ORDERED: ARIMIDEX1 MG PO (10:45)
[2021-09-05] MEDS ORDERED: LASIX20 MG PO (11:05)
--- NOTE | 2021-09-05 11:07 | NUR ---
Medications reconciled with pharmacy records and patient interview
--- NOTE | 2021-09-05 13:10 | NUR ---
this rn in pts room to turn off pts antibiotic at this time. pt states that she is doing well and feels good to sit up in the chair for a bit. pt has not pain to report at tthis time.
--- NOTE | 2021-09-05 13:43 | NUR ---
PT REQUESTED I COME BACK LATER, WILL CHECK BACK
--- NOTE | 2021-09-05 14:07 | NUR ---
NOTE FOR VANCOMYCIN DOSING. VANCOMYCIN DOSE CHANGE FROM 1500 MG Q12 TO 1500 MG Q8 DOSING ADJUSTED BASED ON TROUGH OF 9.8 @0830 09/05. THE PEAK LEVEL WAS DRAWN TO ASSESS AUC OF VANCOMYCIN DOSE, THE PEAK LEVEL OF 25.11 @ 1302 09/05 AND AUC WAS CALCULATED 110.6 (goal = 400-600). SINCE THE SSTI IS ALSO CAUSING SIGNS OF SEPSIS THEN THE AUC GOAL OF 400-600 IS THE BEST GOAL FOR THIS PATIENT AND INFECTION, TO PROVIDE GOOD ANTIBIOTIC LEVELS WITH LIMITED TISHA. PRILIMINARY CULTURES WILL BE AVAILABLE TOMORROW (09/06) TO POSSIBLY ROLE IN [facility].
--- NOTE | 2021-09-05 14:18 | NUR ---
PATIENT SITTING UP IN CHAIR. TOOK PATIENTS VITALS AND TEMPERATURE WAS 99.1. I NOTIFIED NURSE NUBIA. PATIENT RECIEVED ICE WATER AND DOES NOT NEED ANYTHING ELSE AT THIS TIME. CALL LIGHT IN REACH.
--- NOTE | 2021-09-05 14:30 | NUR ---
STAFF NURSE WAS CONCERNED THAT PATIENT STATES HER GLUCOSE MONITOR STRIPS ARE NO LONGER CARRIED AT HER PHARMACY AND SHE MAY NEED NEW EQUIPMENT. SPOKE WITH PATIENT. SHE STATES THAT [facility] QUIT CARRYING THEM, BUT SHE CALLED [facility] WHERE SHE IS MOVING HER RX TO AND THEY CAN ORDER THEM. SHE STATES SHE IS SET WITH ALL THAT.
--- NOTE | 2021-09-05 14:34 | NUR ---
PT ALERT, ORIENTED AND SITTING IN CHAIR WITH LLE UP. PT STRUGGLING WITH FEVER APPEARS TO BE ON THE RISE AGAIN. OUTLINE ON LLE MAPPING PROGRESSION OF INFECTION. GAVE ENCOURAGEMENT, PT REQUESTED PRAYER. WILL FOLLOW
--- NOTE | 2021-09-05 14:45 | NUR ---
this rn in pts room to check pts temp- 99.3. pt has no other needs at this time.
--- NOTE | 2021-09-05 15:45 | NUR ---
this rn back in pts room to recheck temp- 101.0- this rn called per call parameters. new orders: blood cultures.
--- NOTE | 2021-09-05 16:15 | NUR ---
this rn in pts room to get first bllod culture and lactic while restarting iv due to pts right ac going bad. pt tolerated well
--- NOTE | 2021-09-05 19:29 | NUR ---
REPORT RECEIVED FROM DAY SHIFT RN. PT LYING IN BED ALERT AND ORIENTED. DENIES NEEDS AT THIS TIME. WHITE BOARD UPDATED. CALL LIGHT IN REACH.
--- NOTE | 2021-09-05 21:00 | NUR ---
EVENING ASSESSMENT COMPLETE. SCHEDULED MEDS ADMINISTERED PER EMAR. PRN GIVEN FOR CHRONIC BACK PAIN. PT AFEBRILE AT THIS TIME. PT REPORTS BEING DIAPHORETIC. COOL CLOTH AND FRESH LINEN PROVIDED. 20G PIV STARTED IN LEFT FOREARM FOR ABX INFUSION. PIV IN LAC DC'D WNL. TIP INTACT. PT MILA WELL. LLE EXTREMITIY ELEVATED ON PILLOWS. SKIN HOT AND RED. REDNESS WITHIN OUTLINE. PT DENIES QUESTIONS OR CONCERNS. CALL LIGHT IN REACH.
--- NOTE | 2021-09-05 22:53 | NUR ---
PT RESTING IN BED WITH EYES CLOSED. RESPIRATIONS EVEN. NO APPARENT DISTRESS.
--- NOTE | 2021-09-06 02:01 | NUR ---
IV ABX INFUSING WNL. PT DENIES PAIN/BURNING WITH INFUSION. PRN FOR COUGH ADMINISTERED PER EMAR. PT AFEBRILE, TEMP 98.3. FRESH WATER PROVIDED. NO FURTHER NEEDS.
--- NOTE | 2021-09-06 06:27 | NUR ---
VS AND I&O OBTAINED. PT AFEBRILE. DENIES PAIN AT REST. LLE ELEVATED. FRESH WATER PROVIDED. DENIES NEEDS. CALL LIGHT IN REACH.
--- NOTE | 2021-09-06 07:20 | NUR ---
REPORT RECEIVED FROM MORAIMA FIGUEROA. THEN ROUNDED ON PT IN MORNING ROUNDS. PT SITTING UP IN BED. TALKATIVE AND APPRECIATIVE OF CARE.
--- NOTE | 2021-09-06 08:25 | NUR ---
MORNING MEDS GIVEN, PT EATING BREAKFAST. IV ROCEPHIN STARTED IN LEFT FOREARM IV. ADVISED TO CALL IF PAINFUL.
--- NOTE | 2021-09-06 09:42 | NUR ---
ASSESSMENT DONE, IV ABX FINISHED. PINKNESS ON LEFT LOWER LEG SPREADING UP TOWARDS KNEE AND DOWN TO FOOT SOME. RIGHT FOREARM IV D/C'D D/T PAIN, INFLAMMATION. PT GIVEN FRESH WATER, RESTING COMFORTABLY.
--- NOTE | 2021-09-06 10:02 | NUR ---
PATIENT IN BED TALKING ON PHONE. VITALS AND I&O'S CHARTED. SHOWER SUPPLIES PROVIDED. CALL LIGHT IN REACH. NO FURTHER NEEDS AT THIS TIME.
--- NOTE | 2021-09-06 10:37 | NUR ---
STARTED VANCO. PT UP TO RESTROOM WITHOUT DIFFICULTY.
--- NOTE | 2021-09-06 12:04 | NUR ---
WASHED PTS HAIR WITH SHOWER CAP, LAB CAME TO DRAW BLLOOD, THEN PT WENT FOR A WALK AROUND THE UNIT. 1 LAP COMPLETED BEFORE RETURNING TO ROOM D/T FATIGUE.
--- NOTE | 2021-09-06 12:20 | NUR ---
PT ALERT, ORIENTED AND SITTING UP IN BED. PT MILDLY FRUSTRATED THAT HER LLE IS NOT IN HER WORDS COOPERATING BETTER. UNDERSTANDS POC, HAD DISCUSSION ABOUT HER INFECTIONS AND SELF HELP THINGS SHE CAN DO FROM THIS POINT ON, FRANCO CHACON NEEDS IN TO SEE PT, HAD PRAYER AND WILL FOLLOW
--- NOTE | 2021-09-06 14:06 | NUR ---
PT UP TO RESTROOM AFTER FINISHING LUNCH IN HER CHAIR. ASSESSMENT DONE. AMBULATED PT AROUND UNIT TWICE BEFORE STOPPING, NO PAIN, LEFT PT SITTING UP IN CHAIR TALKING TO FAMILY ON PHONE.
--- NOTE | 2021-09-06 17:47 | NUR ---
Attemted to see x 2. Will visit tomorrow.
--- NOTE | 2021-09-06 19:05 | NUR ---
MIDLINE ATTEMPT NOTE: ASKED BY NURSING STAFF TO EVALUATE PATIENT FOR A POTENTIAL MIDLINE PLACEMENT. PT HAS IV VANCO INFUSIONS AND EVERYTIME INFUSION STARTS, HER VEINS BECOME RED, IRRITATED, AND HARD TO TOUCH. PT HAS VISIBLE REDNESS TO RIGHT AC AREA FROM PREVIOUS IV SITE. PT HAS AN IV IN LEFT FOREARM THAT IS ALSO NOW RED AND HARD TO TOUCH. MIDLINE ATTEMPTED IN RIGHT BASILIC, AND LEFT BASILIC VEIN W/O SUCCESS. UNABLE TO FULLY ADVANCE CATHETERS INTO VEINS. THEREFORE, U/S GUIDED PERIPHERAL IV PLACED IN RIGHT UPPER ARM CEPHALIC VEIN. BLOOD EASILY ASPIRATED AND IV FLUSHING WELL W/O PAIN TO SITE. PT EDUCATED ON WATCHING IV SITE CLOSELY FOR SIGNS OF IRRITATION.
--- NOTE | 2021-09-06 19:30 | NUR ---
RECEIVED REPORT FROM DAY SHIFT RN. PATIENT IS SITTING ON THE BED EATING DINNER. NO NEEDS NOTED. CALL LIGHT IN REACH.
--- NOTE | 2021-09-06 20:42 | NUR ---
Resperations zoraida 28, RN was notified. Patient vitals, I&Os are complete. Water was refilled. Call light is in reach.
--- NOTE | 2021-09-06 21:24 | NUR ---
PATIENT ASSESMENT COMPLETED. ABX INFUSING PER ORDER. PATIENTS SCHEDULED MEDICATIONS GIVEN PER ORDER. PATIENT DENIES ANY PAIN. PATIENTS SCHEDULED MEDICATIONS GIVEN PER ORDER. PATIENTS LLE IS RED, HOT TO THE TOUCH, AND INFLAMED. REDDENED AREA OUTLINED, IN SOME AREAS THE REDENESS HAS DECREASED FROM LINE AND OTHER AREAS HAS INCREASED UP THE LEG PAST THE LINE. PATIENT DENIES ANY FURTHER NEEDS. CALL LIGHT IN REACH. LLE ELEVATED ON THE PILLOW.
--- NOTE | 2021-09-06 22:41 | NUR ---
PATIENT ASSISTED TO THE RESTROOM. PATIENT WAS ABLE TO VOID. PATIENT HAD BM. PATIENT IS BACK IN BED RESTING. PATIENT IS NOW SL. PRN MEDICATION GIVEN FOR PAIN. PATIENT DENIES ANY FURTHER NEEDS. CALL LIGHT IN REACH.
--- NOTE | 2021-09-07 02:42 | NUR ---
PATIENTS ABX INFUSING. PATIENT IS RESTING IN BED LLE ELEVATED ON PILLOWS. PATIENTS ICE WATER REFILLED. PATIENT DENIES ANY PAIN. PATIENT DENIES ANY NEEDS AT THIS TIME. CALL LIGHT IN REACH.
--- NOTE | 2021-09-07 04:24 | NUR ---
Patient SBA Bathroom. Patient needed assistence trasnfering the IV with her and back to bed. Patient went back to bed and has her left leg elevated like before.
--- NOTE | 2021-09-07 05:58 | NUR ---
PT CALLED, ABX COMPLETE. SL. VS, AND I/O COMPLETE. NO OTHER NEEDS AT THIS TIME.
--- NOTE | 2021-09-07 06:02 | NUR ---
PATIENT IS RESTING IN BED. PATIENTS LLE ELEVATED ON PILLOWS. PATIENT DENIES ANY PAIN. PATIENT DENIES ANY NEEDS. CALL LIGHT IN REACH.
--- NOTE | 2021-09-07 07:20 | NUR ---
pt up walking halls during report this am. pt states that her pain is minmal.
--- NOTE | 2021-09-07 07:42 | NUR ---
PT JUST GOT BACK FROM WALKING THE LONG. PT NOW LAYING IN BED. OFFERED A WARM CLOTH, PT REFUSED. PT SAYS THEY WILL GET INTO THIER CHAIR AT SOME POINT BEFORE BREAKFAST. PT INDEPENDENT. FRESH ICE WATER GIVEN. CALL LIGHT WITHIN REACH, NO FURTHER NEEDS AT THIS TIME.
--- NOTE | 2021-09-07 08:00 | NUR ---
THIS RN IN PTS ROOM TO GIVE PT MORNING MEDS. PT STATES SLIGHT PAIN IN LEFT LEG THAT IS "TIGHT" BUT IT IS TOELRABLE
--- NOTE | 2021-09-07 09:00 | NUR ---
THIS RN BACK IN PTS ROOM TO GIVE PT THE REST OF MORNING MEDS. PT UP TO CHAIR THIS AM AND ASKING TO ELEVATE LEFT FOOT. FOOT ELEVATED. THIS RN AND PT CHATTED ABOUT PTS HOME LIFE- PT VERY PLEASANT LADY.
--- NOTE | 2021-09-07 09:30 | NUR ---
PT IN CHAIR WITH LL PROPPED ON PILLOW. SHEETS WERE DIRTY, SO CHANGED LINENS. ROOM TIDIED. CALL LIGHT WITHIN REACH. NO FURTHER NEEDS AT THIS TIME.
[2021-09-07] MEDS ORDERED: CEPHALEXIN500 MG PO (09:52)
[2021-09-07] MEDS ORDERED: DOXYCYCLINE HY100 MG PO (09:52)
[2021-09-07] MEDS ORDERED: KLOR-CON 1010 MEQ PO (10:39)
--- NOTE | 2021-09-07 13:45 | NUR ---
PT SITTING IN CHAIR, LEGS ELEVATED AND PREPPING FOR DC. PT SAID SHE FEELS MUCH BETTER TODAY, ALL QUESTIONS ANSWERED. GAVE BLESSING WILL FOLLOW
== END 2021-09-07 12:15 | disposition home or self-care (01) | DRG 872 ==
LOC: ED 12:42 → MS 16:05
PROVIDERS: ADMIT Student in an Organized Health Care Education/Training Program; ATTEND Student in an Organized Health Care Education/Training Program
PROC: 05HY33Z Insertion of Infusion Device into Upper Vein, Percutaneous Approach (ICD-10-PCS; principal; 2021-09-07)
DX: A41.9 Sepsis, unspecified organism (principal); L03.116 Cellulitis of left lower limb; Z20.822 Contact with and (suspected) exposure to COVID-19; E11.621 Type 2 diabetes mellitus with foot ulcer; R65.20 Severe sepsis without septic shock; L97.529 Non-pressure chronic ulcer of other part of left foot with unspecified severity; G89.4 Chronic pain syndrome; D69.6 Thrombocytopenia, unspecified; I10 Essential (primary) hypertension; M54.9 Dorsalgia, unspecified; Z68.38 Body mass index [BMI] 38.0-38.9, adult; E11.42 Type 2 diabetes mellitus with diabetic polyneuropathy; Z90.710 Acquired absence of both cervix and uterus; Z90.49 Acquired absence of other specified parts of digestive tract; E66.9 Obesity, unspecified; Z98.890 Other specified postprocedural states; Z96.651 Presence of right artificial knee joint; Z88.5 Allergy status to narcotic agent; Z88.1 Allergy status to other antibiotic agents; Z88.8 Allergy status to other drugs, medicaments and biological substances; Z79.84 Long term (current) use of oral hypoglycemic drugs; Z79.899 Other long term (current) drug therapy
CPT/HCPCS: 36569; 71045; 73630; 80048; 80053; 80202; 80500; 81001; 82565; 83605; 83735; 84520; 85007; 85025; 85049; 87040; 93971; 96365; 96375; 99285-25; A9270; C1751; C9803; J0696; J1815; J2405; J3370; J3475; J7060; J7121; U0003

== ENCOUNTER 2021-09-15 15:36 | Inpatient (IN) | payer BC ==
[~2021-09-15] VITALS: Ht 175.3 cm; Wt 118.0 kg
[~2021-09-15 15:36] MED LIST changes: +ARIMIDEX1 MG PO; +CEPHALEXIN500 MG PO; +DOXYCYCLINE HY100 MG PO; +EFFEXOR XR37.5 MG PO; +GLIPIZIDE ER5 MG PO; +HYDROCHLOROTH12.5 MG PO; +KLOR-CON 1010 MEQ PO; +LASIX20 MG PO
--- OUTSIDE RECORDS SUMMARY | 2021-09-15 15:38 | XMS ---
PreManage Notification: MONICO ALBRIGHT Security Security Systems Technician Events No recent Security Events currently on file CRITERIA MET - [facility] - 2 [facility] in 30 Days [facility] NANI MONTO[facility] 04/05/2021-Current PHONE: [phone] Jillian has no Care Guidelines for this patient. April VISIT COUNT (12 MO.) 3 [facility] TOTAL 3 NOTE: Visits indicate total known visits. ED/UCC VISIT TRACKING (12 MO.) 09/15/2021 15:[address] [place] TYPE: Emergency COMPLAINT: - L LEG PAIN 09/03/2021 12:[address] [place] TYPE: Emergency COMPLAINT: - HIGH FEVER, COUGH, LEFT LEG SWELLING 04/04/2021 22:[address] [place] TYPE: Emergency COMPLAINT: - BACK PAIN DIAGNOSES: - Low back pain - MCFP (current) use of oral hypoglycemic drugs - Allergy status to narcotic agent - Type 2 diabetes mellitus with diabetic neuropathy, unspecified - Other alf (current) drug therapy - Other chronic pain - Allergy status to other antibiotic agents - Allergy status to other drugs, medicaments and biological substances - Essential (primary) hypertension INPATIENT VISIT TRACKING (12 MO.) 09/03/2021 16:[address] [place] TYPE: Medical Surgical COMPLAINT: - CELLULITIS DIAGNOSES: - Acquired absence of other specified parts of digestive tract - Essential (primary) hypertension - Other intermediate accountant (current) drug therapy - Allergy status to other antibiotic agents - Type 2 diabetes mellitus with foot ulcer - Essential (primary) hypertension - Allergy status to other drugs, medicaments and biological substances - Severe sepsis without septic shock - Type 2 diabetes mellitus with diabetic polyneuropathy - Cellulitis of left lower limb - Acquired absence of both cervix and uterus - Presence of right artificial knee joint - Body mass index [BMI] 38.0-38.9, adult - Allergy status to narcotic agent - Non-pressure chronic ulcer of other part of left foot with unspecified severity - Allergy status to narcotic agent - Body mass index [BMI] 38.0-38.9, adult - terminologist (current) use of oral hypoglycemic drugs - terminologist (current) use of oral hypoglycemic drugs - Non-pressure chronic ulcer of other part of left foot with unspecified severity - Cellulitis of left lower limb - Other specified postprocedural states - Allergy status to other drugs, medicaments and biological substances - Type 2 diabetes mellitus with diabetic polyneuropathy - Chronic pain syndrome - Thrombocytopenia, unspecified - Severe sepsis without septic shock - Acquired absence of both cervix and uterus - Chronic pain syndrome - Presence of right artificial knee joint - Obesity, unspecified - Dorsalgia, unspecified - Other specified postprocedural states - Type 2 diabetes mellitus with foot ulcer - Acquired absence of other specified parts of digestive tract - Allergy status to other antibiotic agents - Dorsalgia, unspecified - Thrombocytopenia, unspecified - Other intermediate accountant (current) drug therapy - Obesity, unspecified - Sepsis, unspecified organism [email or web address]
--- NOTE | 2021-09-15 18:04 | NUR ---
REPORT RECEIVED FROM MORAIMA KEENAN. AWAITING PTS ARRIVAL TO FLOOR.
--- NOTE | 2021-09-15 19:18 | NUR ---
PT STILL HAS NOT ARRIVED TO UNIT. REPORT GIVEN TO MORAIMA GE WHO IS ASSUMING CARE OF PT WHEN SHE ARRIVES FROM THE ER.
--- NOTE | 2021-09-15 19:38 | NUR ---
PT BROUGHT OVER TO ROOM 108 VIA STRETCHER WITH VANCOMYCIN INFUSING. PT WAS ABLE TO STAND FROM STRETCHER TO BED WITH STANDBY ASSSIT. VITALS AND WEIGHT OBTAINED. ADMISSION DONE, PRIMARY ASSESSMENT TO BE COMPLETED BY MORAIMA GE.
--- NOTE | 2021-09-15 19:49 | NUR ---
DR HELLER CALLED WITH VERBAL ORDERS FOR A CT SCAN WITH CONTRAST. TALKED TO HARDSCAPE FOREMAN AND SHE WILL TALK TO CLASSER AND ENTER ORDERS.
--- NOTE | 2021-09-15 20:00 | NUR ---
IN TO ASSIST PT TO THE TOILET, PROVIDED SANDWICH BOX, EXTRA ICE WATER AT BEDSIDE PROVIDED, NO FURTHER NEEDS
--- NOTE | 2021-09-15 20:09 | NUR ---
193 - ADMITTED TO ROOM 108 FROM ED. ALERT AND ORIENTED, ON ROOM AIR. R UPPER ARM MIDLINE IN PLACE. VANCOMYCIN STARTED IN ED INFUSING AT THIS TIME. L LEG RED BELOW KNEE WITH LEATHERY PURPLISH LOOKING MID CALF, ELEVATED WITH PILLOWS. FAMILY IN ROOM
--- NOTE | 2021-09-15 20:10 | NUR ---
SPOKE WITH BUYER AGENT AND IMAGING DEPT ABOUT WHICH ORDER TO ENTER FOR LOWER EXT CT WITH CONTRAST. ADVISED THEM TO CALL DR HELLER WITH QUESTIONS PER DR HELLER'S REQUEST.
--- NOTE | 2021-09-15 20:44 | NUR ---
Back from DI via w/c and XR tech
--- NOTE | 2021-09-15 21:00 | NUR ---
pT COOP WITH ASSESMENT, ON ROOM AIR, MENDEL MIDLINE PATENT, RW SL PATENT. L LEG PICTURES OBTAINED WITH HER CONSENT. BLISTER INNER CALF SOME RUPTURED AND ONE LOWER END PROXIMAL TO BIG TOE STILL INTACT, SS DRAINAGE. ELEVATED WITH PILLOWS. L BIG TOE DARK COLORED THICK EDGES AREA, OLD ULCER, PALE DRY SKIN R LOWER BIG TOE PROXIMAL AREA SMALLER DARK COLORED AREA, THICK SKIN, DRY, PALE, COOL TO TOUCH, DRY SKIN, BOTH FEET ARE COOL TO TOUCH, PT STATS THATS NORMAL. WOUND CONSULT TO BE INITIATED BY RN. PRABHAKAR TO BE NOTIFIED FOR POSSIBLE PODIATRY CONSULT. PT COOPERATIVE
--- NOTE | 2021-09-16 00:17 | NUR ---
RESTING, EYES CLOSED, L LEG ELEVATED,
--- NOTE | 2021-09-16 02:14 | NUR ---
Up to br, voided, L leg improved edema and decreased redness below the knee area, elevated, bedding and gown changed, pt was diaphoretic while sleeping, afebrile at this time. did own care, tolerated well, c/o 6/10 L leg pain, medicated with Tylenol 500mg po, call light and fluids at bedside
--- NOTE | 2021-09-16 03:50 | NUR ---
PT CALLED D/T BEEPING IV, BAG WAS COMPLETE IV IS NOW SL. PT DENIES FURTHER NEEDS. CALL LIGHT IS CLOSE.
--- NOTE | 2021-09-16 04:00 | NUR ---
Up to br, voided, back to bed, L leg elevated with pillows, improving, decreased edema and redness. no c/o adverse reaction to vancomycing. tolerating liquids well, no emesis, call light at bedside
--- NOTE | 2021-09-16 05:56 | NUR ---
PT HAS SLEPT OFF AND ON, ON ROOM AIR, CLEAR LUNGS, MENDEL MIDLINE PATENT, NO C.O ADVERSE REACTION TO VANCOMYCIN INFUSION. TOLERATED WELL. SL LWRIST PATENT TOO. CBG WAS 169, RECEIVED 1 UNIT SS INSULIN. L LE CELLULITIS, IMPROVED, DIMINISHED REDNESS, DECREASED EDEMA. HAS BEEN ELEVATED ALL SHIFT, MARKING AND MEASUREMENTS DONE 30CM AT ANKLE AREA, 56.1/2 CM AT MID CALF AREA. BLISTERED AREA LOWER PROXIMAL TO TOES AREA INTACT, PT HAD 2 OTHER RUPTURES BLISTED IN CALF ON ARRIVALS, DRAINAGE HAS DECREAED YELLOW/SS COLORING, NO ODOR. PT HAS 2 DARK COLORED OLD ULCERS IN BOTH TOES. FOOT HALO CRADDLE IN PLACE. WOUND NURSE CONSULT DONE AND MD TO REVIEW TO SEE IF SERVICE DELIVERY DIRECTOR CONSULT IS NEEDED. PT HAS BEEN MEDICATED WITH tYLENOL 500MG PO X2 PER L LEG PAIN, EFFECTIVE. PT INDEPENDENT IN ROOM TOLERATING LIQUIDS WELL, NO EMESIS. PLEASANT AND COOPERATIVE. USES CALL LIGHT, ALERT AND ORIENTED
--- NOTE | 2021-09-16 07:34 | NUR ---
REPORT RECEIVED. PT LYING IN BED AWAKE. BREAKFAST ORDERED. CALL LIGHT IN REACH. PT DENIES FURTHER NEEDS.
[2021-09-16] MEDS ORDERED: BENZONATATE100 MG PO (07:35)
[2021-09-16] MEDS ORDERED: PROMETHAZINE-C473 ML PO (07:36)
--- NOTE | 2021-09-16 07:36 | NUR ---
MED REC COMPLETED BY PHARMACY
--- NOTE | 2021-09-16 10:04 | NUR ---
ASSESSMENT COMPLETED. PT ATE 75% OF BREAKFAST. PAIN REPROTED AT 03/21. PT REQUESTING TYLENOL. LEG IS ELEVATED ON PILLOWS, REDNESS OUTLINED. SWELLING SEEMS INPROVED FROM YESTERDAY DURING ADMISSION AND REDNESS DECREASING. PT HAD 2 BM'S TODAY. DENIES FURTHER NEEDS. CALL LIGHT IN REACH.
--- NOTE | 2021-09-16 10:19 | NUR ---
SPOKE WITH PATIENT IN ROOM. PATIENT STATES NOTHING HAS CHANGED SINCE DISCHARGE LAST WEEK, EXCEPT SHE NOW HAS ALL RX TRANSFERRED TO [facility]. PATIENT PLANS TO RETURN HOME AGAIN. FEELS SHE HAS EVERYTHING AT THIS POINT, AND HAS GOOD SUPPORT. NO FINANCIAL BARRIERS, AND FEELS SAFE. CM WILL CONTINUE TO FOLLOW NEEDED.
--- NOTE | 2021-09-16 12:21 | NUR ---
PT ALERT, ORIENTED AND CARED FOR BY HER STUART. PT DISCOURAGED HAVING TO COME BACK WITH RECURRENT CELLULITUS-FEELS WORSE. GAVE COMFORT, TODAY IS ALSO PT'S B-DAY. HAD PRAYER, LEFT NEW G.POST. WILL FOLLOW NEEDED
--- NOTE | 2021-09-16 13:22 | CONS ---
[facility] [address] [place], [place] [address] Signed DATE OF CONSULTATION: 09/16/2021 CHIEF COMPLAINT: Black skin, left lower extremity. HISTORY OF PRESENT ILLNESS: Monico is a 61-year-old obese diabetic female with neuropathy who has had bilateral knee replacements. For reasons that are not clear, she has developed cellulitis in her left lower extremity/calf. She had been in the hospital on the Internal Medicine Service. She was discharged to home on doxycycline and Keflex. Unfortunately that tissue is quite swollen and now, it is black. It is mostly on the medial side, but somewhat posterior as well. She came back to the hospital, has been readmitted, started on vancomycin. I have been asked to see her as a general surgeon on-call. She has an ulcer on both of her great toes. They are both dry and scabbed and appeared to be quite clean without any local signs or symptoms of infection. Her self contained behavior unit teacher, Dr. Max has been helping her with those. PAST MEDICAL HISTORY: Hypertension, lumbago, type 2 diabetes with neuropathy. PAST SURGICAL HISTORY: Hemorrhoidectomy, bilateral knee replacements, hysterectomy, bladder stones and cholecystectomy. SOCIAL HISTORY: She does not smoke or drink. She is to Joe at [phone]. Addis Perkins is her physician's warehouse administrative assistant. Dr. Max is her self contained behavior unit teacher. She prefers to [facility]. FAMILY HISTORY: Mom had Hodgkin's lymphoma. Dad had some type of heart disease. REVIEW OF SYSTEMS: She had 10 systems reviewed and there were no new findings. ALLERGIES: Codeine, hydrocodone, erythromycin and midazolam. MEDICATIONS: Doxycycline, Keflex, tizanidine, losartan, gabapentin, metformin, vitamin D, estradiol, Zyrtec, atenolol, omeprazole, Flonase, triamcinolone, glipizide, hydrochlorothiazide, Lasix, and potassium chloride. Electronically Signed By: KAYA COUCH MD 09/16/21 1322 PATIENT NAME: MONICO ALBRIGHT CONSULTATION DATE OF : 62 REPORT #: [id number] PHYSICIAN: KAYA COUCH MD PCP: ADDIS PERKINS PA-C REPORT IS CONFIDENTIAL AND NOT TO BE RELEASED WITHOUT AUTHORIZATION [facility] [address], [place] [address] Signed PHYSICAL EXAMINATION: VITAL SIGNS: Her blood pressure is 132/57, heart rate is 89, respiratory rate 16, temperature is 97.9. She is 93% on room air. She is 5 feet 9 inches and 118 kg. GENERAL: Monico is a 61-year-old female, sitting upright in her bed eating her lunch. Her , Joe is with her. Our nurse, Julissa is as well. She does not appear systemically ill or toxic. She is a good historian. LUNGS: Clear to auscultation bilaterally. HEART: Regular rate and rhythm without murmurs. ABDOMEN: Obese, but soft. EXTREMITIES: Her left leg is quite swollen and she has a significant area of black necrotic tissue on the medial side of her calf several cm below the knee all the way almost to the ankle. Both feet are warm and perfused. The right leg is unremarkable otherwise. Using our bedside Doppler, she has biphasic dorsalis pedis and posterior tibial pulses on both feet. Those pulses are actually quite strong. LABORATORY DATA: Her white blood count is 5.6, hemoglobin is 12, neutrophils are 63, platelets 184, BUN is 10, creatinine 0.6, glucose is 116. Her sedimentation rate is 57. Lactic acid is 1.3. Albumin is 2.8. AST 30, ALT 25, alkaline phosphatase 133. COVID is negative. Her blood cultures are pending. RADIOGRAPHIC STUDIES: An ultrasound of the left lower extremity showed some edema in the soft tissue. CT scan of left lower extremity also showed soft tissue edema, but appears that the muscle compartments are unremarkable. ASSESSMENT/PLAN: Monico is a 61-year-old obese diabetic female, who has developed necrotic skin over the medial calf and posterior calf as well. She is very aware that all that black skin has to be excised all the way down to the muscle. She will need extended wound care and once we get some granulation tissue, we will probably go ahead and skin graft that area. She is well aware that this puts her left knee replacement at significant risk for infection and removal. At this point, we are going to keep her n.p.o. after midnight and we will do this first thing in the morning. She and her have expressed understanding and agreed to above plan. Kaya Couch MD ALB/MODL /[id number] Electronically Signed By: KAYA COUCH MD 09/16/21 1322 PATIENT NAME: MONICO ALBRIGHT CONSULTATION DATE OF : 62 REPORT #: [id number] PHYSICIAN: KAYA COUCH MD PCP: ADDIS PERKINS PA-C REPORT IS CONFIDENTIAL AND NOT TO BE RELEASED WITHOUT AUTHORIZATION [facility] [address] [address] Signed cc: ERIC Benitez MD Meredith Dahle, PA-C Copies: RACHELLE MAX DPM, ANDREW L MD ~ Electronically Signed By: KAYA COUCH MD 09/16/21 1322 PATIENT NAME: MONICO ALBRIGHT CONSULTATION DATE OF : 62 REPORT #: [id number] PHYSICIAN: KAYA COUCH MD PCP: ADDIS PERKINS PA-C REPORT IS CONFIDENTIAL AND NOT TO BE RELEASED WITHOUT AUTHORIZATION
--- NOTE | 2021-09-16 15:57 | NUR ---
Scheduled medications administered, assessment complete. Pt resting in bed watching tv, at bedside and attentive to patient. Pt states discussed plan of care with Dr Kapoor and reports she has no questions. L leg elevated on pillow. Open to air, warm to touch, clear outlined border. Pt states no needs at this time, call light in reach.
--- NOTE | 2021-09-16 18:10 | NUR ---
PT RESTING IN BED. IN ROOM. CALL LIGHT WITHIN REACH, NO FURTHER NEEDS AT THIS TIME.
--- NOTE | 2021-09-16 19:13 | NUR ---
DID HER BLOOD SUGAR CHECKS FOR BREAKFAST LUNCH AND DINNER. WAS IN THE ROOM VISITING.
--- NOTE | 2021-09-16 20:30 | NUR ---
IN TO GET VITALS, NO FURTHER NEEDS
--- NOTE | 2021-09-16 20:38 | NUR ---
ANTIFUNGAL POWDER APPLIED UNDER PANNUS AND BREASTS. NO OTHER NEEDS. CALL LIGHT IN REACH.
--- NOTE | 2021-09-17 00:08 | NUR ---
PT RESTING IN BED SLEEPING, ALERT TO RN AT BEDSIDE TO ADMINISTER VANCO ABX. PT REPORTS HER BLAINE IS WELL MANAGED AT THIS TIME. SHE ALSO SAID WHEN SHE WOKE SHE WAS SWEATY, TEMP CHECKED, 97.9 ORALLY.
--- NOTE | 2021-09-17 01:29 | NUR ---
pt resting in bed eyes closed rr even, sleeping, rr 16bpm, no distress noted.
--- NOTE | 2021-09-17 04:30 | NUR ---
PT HAS SLEPT WELL OVER SHIFT, ALERT TO STAFF WHEN ROUNDING. UPDATED SPOUSE EARLIER IN SHIFT PER WAITSTAFF PT SURGERY IS PLANNED FOR 0900 THIS AM. SHE REPORTS PAIN WELL MANAGED WELL. CALL LIGHT IN REACH. NPO SINCE MIDNIGHT. UNEVENTFUL SHIFT.
--- NOTE | 2021-09-17 06:44 | NUR ---
IN ROOM TO PREP PT FOR SURGERY. WIPE DOWN AND LINEN CHANGED COMPLETED. NO OTHER NEEDS. CALL LIGHT IN REACH.
--- NOTE | 2021-09-17 07:26 | NUR ---
this rn received report from tess jane. pt awake this am and has no reports of pain and is ready for surgery.
--- NOTE | 2021-09-17 07:47 | NUR ---
PT WIDE AWAKE. UPDATED WHITE BOARD. PT REFUSED WARM CLOTH. CALL LIGHT WITHIN REACH, NO FURTHER NEEDS AT THIS TIME.
--- NOTE | 2021-09-17 08:25 | NUR ---
THIS RN IN PTS ROOM TO START PTS VANCO PRIOR TO SURGERY. THIS RN TO FLUSH PTS MIDLINE- DID NOT RETURN BLOOD THIS AM BUT FLUSHED WITHIN NORMAL LIMITS. PTS LEFT LEG IS UNCHANGED FROM ARMOND RN'S ASSESSEMNT- NECROTIC TISSUE NOTED. PT REPORTS MINIMAL PAIN. PTS AT BEDSIDE. ALL QUESTIONS ANSWERED TO THE BEST OF THIS RN'S ABILITY
--- NOTE | 2021-09-17 09:00 | NUR ---
PT OFF FLOOR TO SURGERY AT THIS TIME PTS TO REMAIN IN ROOM.
--- NOTE | 2021-09-17 10:38 | NUR ---
09/17/21 1038 Minnie Barth 1004 PT ARRIVED IN PACU SLEEPY. 1010 BLOOD SUGAR 124. ANESTHESIA AWARE. 1030 OXYGEN REMOVED. SATS 98-99% ON RA. NO C/O'S.
--- NOTE | 2021-09-17 11:00 | NUR ---
PT ARRIVED BACK FROM SURGERY AT THIS TIME. PT ALERT BUT APPEARS DROWSY- SLIGHTLY OPENING EYES. PT ABLE TO SCOOT HERSELF FROM GOURNEY OVER TO BED. PTS AT BEDSIDE. PT DENIES NAUSEA AND PAIN AFTER SURGERY- REPORTS THAT SHE IS COMFORTABLE. THIS RN PLACED PT ON CPOX- PT SATING BETWEEN 88-92% ON ROOM AIR. PT TALKS HER O2 IMPROVES. THIS RN CALLED BACK TO ROOM DUE TO O2 DROPPING TO 86% ON ROOM DESPITE O2 BEING 92% WHEN THIS RN LEFT PT. THIS RN PLACED PT ON 1L NC. PT APAOLOGIZING FOR NODDING OFF- THIS RN STATED THAT IT IS MORE THAN OKAY FOR PT TO REST. PTS LEFT LOWER LEG WRAPPED WITH 4X4 GUAZE, ABD PAD, KERLIX, AND BETHANY WRAP- THIS IS TO STAY IN PLACE FOR 24HRS UNLESS SATURATED.
--- NOTE | 2021-09-17 12:00 | NUR ---
this rn in pts room to do pts #2 post opp check. pt still appears to be drowsy at this time. pt states that her pain 4/10 is tolerable at this time. pt does report that she has a touch of nausea, this rn offered zofran- pt received this around 0900 in surgery- pt okay to wait on antinausea meds for now. pt to remain on cpox and 1l nc at this time. pts dressing remains unchanged. c/d/i
--- NOTE | 2021-09-17 13:10 | NUR ---
THIS RN IN PTS ROOM TO DO POST OPP #3 CHECK. PT STATES THAT HER PAIN IS UNCHAGED BUT PT IS FEELING MORE NAUSEAOUS. THIS RN PROVIDED PT WITH 4MG OF ZOFRAN. PTS DRESSING IS UNCHANGED. VITALS LOOK GOOD.
--- NOTE | 2021-09-17 13:52 | NUR ---
PT IN AND OUT OF SLEEP. PT RESPONSIVE. IN ROOM. ICE CHIPS BEING GIVEN PER RN NUBIA. CALL LIGHT WITHIN REACH, NO FURTHER NEEDS AT THIS TIME.
--- NOTE | 2021-09-17 14:14 | NUR ---
THIS RN IN PTS ROOM TO DO PTS LAST POST OPP CHECK. PT REPORTS PAIN 4/10 PRIOR TO GETTING UP, PT REPORTS THAT WHEN UP THAT THE PAIN INCREASED TO 6/10. PT BACK TO BED. WHEN PT WAS STILL ON COMMODE PT REPORTED THAT HER DRESSING WAS LEAKING. THIS RN INSPECTED SITE- PTS WOUND APPEARS TO HAVE SATURATED ALL THE WAY THROUGH THE BETHANY WRAP.
--- NOTE | 2021-09-17 14:45 | NUR ---
THIS RN IN CALLED TO UPDATE HIM ON PTS SATUATION OF DRESSING. PER MD THIS RN TO JUST REINFORCE THE DRESSING WITH ABD PAD AND BETHANY WRAP DUE TO PTS BLEEDING STATUS THAT OCCURED IN THE OR. THIS RN FOLLOWED OUT MDS ORDERS AND WILL MONITOR PTS DRAINAGE.
--- NOTE | 2021-09-17 15:42 | NUR ---
NO SHOWER/BB TODAY PER MORAIMA DELACRUZ
--- NOTE | 2021-09-17 17:15 | NUR ---
THIS RN IN PTS ROOM TO GIV EPT EVEING MEDS. PT STATES THAT HER PAIN IS MINIMAL AND DENIES NEED FOR PAIN MEDS AT THIS TIME. PT WAS JUST UP TO RESTROOM. PTS NOTED THAT THERE SOME DRAINAGE NOTED OUTSIDE OF NEW DRESSING- SEROUS FLUID NOTED ON THE LATERAL BACK SIDE OF SECOND BETHANY WRAP. JAMAL VALERA ALSO NOTED THIS.
--- NOTE | 2021-09-17 19:55 | NUR ---
Awake, watching tv, on room air, lungs clear, MENDEL midline in place, patent. l leg covered with benito wrap, elvated inpillows, halo over bed, no c/o pain. uses call light, hussein.erating fluids
--- NOTE | 2021-09-17 21:35 | NUR ---
up to br, voided, back to bed, tolerated well, no further drainage from l leg. benito wrap in place, old drainage present. elevated with pillows, warm skin.
--- NOTE | 2021-09-17 21:36 | NUR ---
PT UP TO BR, SB ASSIST. PT BACK IN BED LEG ELEVATED. NO C/O PAIN WITH AMBULATION. CALL LIGHT WITHIN REACH, NO FURHTER ASSTANCE NEEDED AT THIS TIME.
--- NOTE | 2021-09-17 23:51 | NUR ---
RESTING, EYES CLOSED, ON ROOM AIR, L LEG DRESSING INTACT WITH OLD DRAINAGE, ELEVATED. CALL LIGHT AND FLUIDS AT BEDSIDE
--- NOTE | 2021-09-18 01:07 | NUR ---
ASSISTED PT UP TO BR, VS AND I/OS DONE.
--- NOTE | 2021-09-18 02:18 | NUR ---
PT UP TO BR, SBA. PROVIDED PT WITH HS SNACK OF CRACKERS
--- NOTE | 2021-09-18 02:55 | NUR ---
PT AWAKE, IN BED, NO C/O PAIN. LAYING ON LEFT SIDE, L LEG ELEVATED IN PILLOWS. CALL LIGHT AND FLUIDS AT BEDSIDE
--- NOTE | 2021-09-18 04:42 | NUR ---
pT RESTING, EYES CLOSED, ON ROOM AIR. L LEG W BETHANY WRAP DRESSING BELOW KNEE TO ANKLES, SMALL AMOUNT OF OLD SS DRAINAGE , ELEVATED WITH PILLOWS. TURNS AND REPOSITIONS SELF IN BED. NO C/O ADVERSE REACTION TO ABX, MENDEL MIDLINE PATENT. UP TO BR SEVERAL TIMES WITH ASSIST, VOIDING QS, TOLERATING WELL. BACK MEDICATED WITH TYLENOL PER L LEG PAIN X1, EFFECTIVE, TOLERATING LIQUIDS WELL, NO EMESIS, ALERT, ORIENTED, PLEASANT AND COOP.
--- NOTE | 2021-09-18 06:50 | NUR ---
Resting, no distress, turns and repositions self in bed. L leg benito wrap dressing in place, old drainage.
--- NOTE | 2021-09-18 07:15 | NUR ---
THIS RN RECEIVED REPORT FROM JOO/ MARLENE VALERA.
--- NOTE | 2021-09-18 07:22 | OR ---
[facility] [address] [place], [place] [address] Signed DATE OF OPERATION: 09/17/2021 SURGEON: Kaya Couch MD PREOPERATIVE DIAGNOSIS: Resolving cellulitis, left lower extremity/calf with black/ischemic skin. POSTOPERATIVE DIAGNOSIS: Resolving cellulitis, left lower extremity/calf with black/ischemic skin. PROCEDURE: Excision of black ischemic skin (10 x 20 cm). ESTIMATED BLOOD LOSS: 150 mL. FINDINGS: Monico's skin was black, leathery, very hard and non bleeding. The adipose tissue underneath however was quite edematous and well-vascularized. She had other areas medially and laterally that were edematous and dusky, but they did jamel to palpation. INDICATIONS: Monico is a 61-year-old obese diabetic female with peripheral neuropathy. She developed cellulitis in her left lower extremity. She was treated on Internal Medicine service with IV antibiotics and discharged to home with doxycycline and Keflex. She came back and she had an area there midway between the ankle and the knee that was black leathery and indurated. She was readmitted to Internal Medicine service. Ultrasound and CT scan showed the edematous tissue, but no obvious drainable fluid collection. I have been asked to see her in consultation as a general surgeon on-call. I met with Monico and her , Joe. I have known them for many years. I explained to Monico the black leathery skin was and that would have to be excised. The other areas are a bit dusky and edematous, but they did jamel a bit with palpation. I think much of that is going to recover on its own. She is currently on broad-spectrum antibiotics. She had been eating yesterday, so we plan to do her surgery this morning and kept her n.p.o. after midnight. Unfortunately, albumin is a little low at 2.8. I explained to Monico and her this would be proximally 10 cm wide by almost 20 cm long. We would treat that with local dressings and await some granulation tissue and we will have to skin graft that here in the weeks ahead after the edema settles down and some of the infection settles down as well. They understand there is risk to that surgery including, but not limited to bleeding, infection, scarring, change in contour of the Electronically Signed By: KAYA COUCH MD 09/18/21 0722 PATIENT NAME: MONICO ALBRIGHT OPERATIVE REPORT DATE OF : 62 REPORT #: [id number] PHYSICIAN: KAYA COUCH MD PCP: ADDIS VASQUEZ PA-C REPORT IS CONFIDENTIAL AND NOT TO BE RELEASED WITHOUT AUTHORIZATION [facility] [address] [place] [id number] Signed skin as well as need for additional debridement. They had expressed understanding and wished to proceed. PROCEDURE NOTE: Monico was brought down to our operating room and placed in the supine position. She was placed under general LMA anesthesia. The black ischemic area on her leg was quite obvious all of a sudden in the room including Monico. That leg had been prepped and draped in the usual sterile fashion. We placed an SCD on her right leg. She was already on preoperative antibiotics and subcutaneous Lovenox. After this, we used a 20 blade knife in the cautery to jared out the perimeter of this plaque ischemic leathery skin. Again, lateral and medial to that the skin is thickened a little edematous and dusky, but overall it does jamel a bit. We then used the cautery to start our dissection. We found that underneath the skin, the adipose tissue was actually edematous, but quite healthy and very viable with excellent blood flow. We therefore made our dissection quite shallow just underneath the skin and took off that area of the skin in an elliptical fashion. We used epinephrine-soaked gauze to help place over the wound for a few minutes. After that, we had a few venous bleeders as needed oversewn with 0 Vicryl suture. The cautery was used for the other areas. After this, saline soaked gauze was placed into the wound and this was covered by dry ABD, followed by 4-inch Kerlix gauze wrap and then a 6-inch Nikolay wrap as well. Monico was then awakened from her anesthesia, extubated in the OR, and taken to recovery room in stable condition. Kaya Couch MD ALB/MODL /[id number] cc: MD Addis Villalobos PA-C Copies: KAYA COUCH MD Electronically Signed By: KAYA COUCH MD 09/18/21 0722 PATIENT NAME: MONICO ALBRIGHT OPERATIVE REPORT DATE OF : 62 REPORT #: [id number] PHYSICIAN: KAYA COUCH MD PCP: ADDIS VASQUEZ PA-C REPORT IS CONFIDENTIAL AND NOT TO BE RELEASED WITHOUT AUTHORIZATION [facility] [address] [place], [place] [address] Signed ~ Electronically Signed By: KAYA COUCH MD 09/18/21 0722 PATIENT NAME: MONICO ALBRIGHT OPERATIVE REPORT DATE OF : 62 REPORT #: [id number] PHYSICIAN: KAYA COUCH MD PCP: ADDIS VASQUEZ PA-C REPORT IS CONFIDENTIAL AND NOT TO BE RELEASED WITHOUT AUTHORIZATION
--- NOTE | 2021-09-18 07:30 | NUR ---
THIS RN IN PTS ROOM WITH TO REDRESS PTS DRESSING ON LEFT LEG. PT TOELRATED WELL BUT DID REPORT SOME DISCOMFORT. BLEEDING NOTED ON THE TOP EDGE OF DEBREIED AREA. WET 4X4 GAUZE PLACED IN DEBREIDED AREA, BACTROBAN OITMENT PLACED ON SKIN, ABD PADS, 4IN KERLIX AND BETHANY WRAP. PTS FOOT ELEVATED ON 2 PILLOWS.
--- NOTE | 2021-09-18 08:15 | NUR ---
THIS RN IN PTS ROOM TO START PTS VANO AT THIS TIME. PT STATES THAT SHE DOING WELL HAVING TAD OF "TWINGES" OF PAIN BUT NOT READY TO HAVE TYLENOL YET
--- NOTE | 2021-09-18 09:17 | NUR ---
PT REFUSED WARM WASHCLOTH
--- NOTE | 2021-09-18 09:17 | NUR ---
PT SITTING UP IN BED. CALL LIGHT WITHIN REACH, NO FURTHER NEEDS AT THIS TIME
--- NOTE | 2021-09-18 10:00 | NUR ---
DEANGELO RN IN PTS ROOM TO GIVE PT THE REST OF HER MORNING MEDS. PT STATES THAT SHE IS READY FOR SOME TYLENOL AT THIS TIME. PT HAS NO OTHER NEEDS AND STATES THAT HER WILL BE IN LATER TO LEARN HOW TO DO DRESSING CHANGE.
--- NOTE | 2021-09-18 13:07 | NUR ---
PT ON PHONE. CALL LIGHT WITHIN REACH, NO FURTHER NEEDS AT THIS TIME. PT DECLINED BB.
--- NOTE | 2021-09-18 15:00 | NUR ---
this rn in pts room to show pt and pts how to do dressing change. pts able to repeat back to this rn his understanding of the procedure and states that he feels confidnet in doing this at home. this rn provided pt with a "goody bag" of wound care supplies to get them through the first couple wound care dressings. pts works for [employer] and states that he can get the rest of the supplies through work. this rn to give pt her meds and start antibiotics.
--- NOTE | 2021-09-18 17:37 | NUR ---
PT ENJOYING DINNER. WILL COME BACK FOR I&O'S. CALL LIGHT WITHIN REACH, NO FURTHER NEEDS AT THIS TIME.
--- NOTE | 2021-09-18 19:53 | NUR ---
cPt awake, on room air. l leg elevated in pillowsace wrap in place, good cms, pink toes at this time. dark colored ulcer both toes w/o changes. decreaed edema. tolerating fluids , uses call light, no c/o adverse reaction to abx. leonela midline does not draw blood, no edema
--- NOTE | 2021-09-18 22:17 | NUR ---
awake, alert and oriented, independent in room. L leg dressing done, cooperative. L inner calf area open area, moist, pink, wet to dry dressing covered abd pads, kerlix and wrapped with benito wrap. decreased redness and edema , darkening of skin still present as on admit, much improved in some areas. decreased edema of ankle and foot, pink toes. cooperative with dressing.
--- NOTE | 2021-09-19 00:41 | NUR ---
Resting, no c/o adverse reactin to abx, l leg dressingintact, elevated in pillows. call light and fluids at bedside
--- NOTE | 2021-09-19 04:58 | NUR ---
PT HAS SLEPT MOST OF THIS SHIFT. ON ROOM AIR, SL PATENT, NO C/O ADVERSE REACTION TO IV ABX. DRESSING TO L LE, SKIN HEALING, NO DRAINAGE. NO ODOR.NO BETHANY WRAP INTACT, ELEVATED., PINK TOES, GOOD CMS, DECREASED REDNESS AND EDEMA. VOIDING QS, INDEPENDENT IN ROOM. CBG 131, REQUIRED NO COVERAGE. ALERT, ORIENTED, COOPERATIVE. POST HOME WOUND DRESSING CAHANGES/CARE DISCUSSED WITH PT, STATED UNDERSTANDING
--- NOTE | 2021-09-19 09:08 | NUR ---
TYLENOL 500MG PO ADMIN FOR REPORTS OF 6/10 LLE PAIN.
--- NOTE | 2021-09-19 09:30 | NUR ---
PATIENT IN BED WATCHING TV. VITALS AND I&O'S CHARTED. FRESH WATER IN CUP PATIENT SAID SHOWER MAYBE LATER. CALL LIGHT IN REACH. NO FURTHER NEEDS AT THIS TIME.
--- NOTE | 2021-09-19 10:25 | NUR ---
PATIENT UP TO SHOWER IND. LINENS CHANGED. AM CARE, ORAL CARE SUPPLIES AT SINK. SHOWER SUPPLIES PROVIDED. CALL LIGHT IN REACH. NO FURTHER NEEDS AT THIS TIME.
--- NOTE | 2021-09-19 11:07 | NUR ---
Dressing to left calf changed per provider order. Old dressing removed, small amount of sarosng drainage noted. Wound bed is beefy red, gently washed wound bed with ns/soap, packed with moist soaked gauze, abd then kerlix wrap per provider order. Bactroban ointment placed to surrounding wound tissue. Patient tolerated well.
--- NOTE | 2021-09-19 11:50 | NUR ---
Visited with Christi regarding his discharge today. Christi feels comfortable with discharge. She feels her will do well with the dressing changes. Christi's biggest concern is pain with the dressing changes. She states that she has only been using tylenol in the hospital for the pain, and plans for the same at home. Paxton states they will be able to get shower chair and any other DME supplies without difficulty through [employer] where her Joe works, or through [facility]. Pt states she already has all other medications needed for discharge at home. Pt also states that there is no concern regarding purchasing of groceries, medications, etc. and that she has sufficient help at home with her and adult children. Pt denies questions or concerns at thist time. Dr. Kapoor was in the room with Christi just prior to my arrival. Pt feels like she understands the information given her.
--- NOTE | 2021-09-19 12:56 | NUR ---
PT ALERT, ORIENTED AND SAID IT WAS OK TO COME IN NOW-SHE HAD STOPPED CRYING. PT INFORMED ME HER DRESSING WAS JUST CHANGED. PT INFORMED ME IT WAS PAINFUL- DIFFICULT TO TOLERATE. PT ACKNOWLEDGED SHE NEEDED TO HAVE DRESSING CHANGED. WILL BE CHANGING AT HOME, AND HE HAS RECEIVED EDUCATION. HAD TIME TO DEBRIEF PT, SHARED HOW HER SURGERY HAD AFFECTED HER EMOTIONALLY. PRAYER WAS ALSO A PART OF MY TIME WITH PT. GAVE ENCOURAGEMENT, WILL FOLLOW NEEDED
--- NOTE | 2021-09-19 13:39 | EKG ---
[facility] [address] [facility] [place], [place] [address] Signed Normal sinus rhythm Normal ECG When compared with ECG of 07-AUG-2017 10:04, No significant change was found Confirmed by ZOYA HELLER MD ([id number]) on 09/19/2021 1:39:10 PM Electronically Signed By: ZOYA HELLER MD 09/19/21 1339 PATIENT NAME: JOSE RAMONMONICO Electrocardiogram DATE OF : 62 PHYSICIAN: ZOYA HELLER MD REPORT #: [id number] REPORT IS CONFIDENTIAL AND NOT TO BE RELEASED WITHOUT AUTHORIZATION
--- NOTE | 2021-09-19 15:06 | NUR ---
PATIENT IN BED RESTING AT THIS TIME. VITALS AND I&O'S CHARTED. CALL LIGHT IN REACH. NO FURTHER NEEDS AT THIS TIME.
== END 2021-09-19 15:45 | disposition home or self-care (01) | DRG 603 ==
LOC: ED 15:36 → MS 15:38
PROVIDERS: Colon & Rectal Surgery; ADMIT Internal Medicine; ATTEND Internal Medicine
PROC: 0HBLXZZ Excision of Left Lower Leg Skin, External Approach (ICD-10-PCS; principal; 2021-09-17 09:00)
DX: L03.116 Cellulitis of left lower limb (principal); G89.4 Chronic pain syndrome; I10 Essential (primary) hypertension; E11.9 Type 2 diabetes mellitus without complications; I87.2 Venous insufficiency (chronic) (peripheral)
CPT/HCPCS: 00300; 36569; 73590; 73701; 76882; 80048; 80053; 80202; 83036; 83605; 85025; 85651; 86140; 87040; 93005; 93010; 94762; 96366; C1751; C9803; G0378; J0696; J1100; J1650; J1815; J1885; J2001; J2300; J2405; J2704; J3370; J7060; J7121; Q9967; U0003

== ENCOUNTER 2021-10-05 08:37 | Day surgery (SDC) | payer BC ==
[~2021-10-05] VITALS: Ht 175.3 cm; Wt 122.9 kg
[~2021-10-05 08:37] MED LIST changes: +BENZONATATE100 MG PO; +PROMETHAZINE-C473 ML PO
--- NOTE | 2021-10-05 12:41 | NUR ---
10/05/21 1241 Tosin Tomlinson 1224-PATIENT ARRIVED TO PACU ON 6L MASK NONAROUSABLE RR EVEN. SR. IVF INFUSING. LEFT CALF CDI DRESSING INTACT. OPSITE TO LEFT THIGH INTACT AND DRAINAGE BENEATH DRESSING SEEN. LIGHT PALPABLE PULSES ASSESSED TO BILATERAL FEET. GOOD WARMTH. BP UPPER 70-80'S SYSTOLIC 1240-PATIENT OPENING EYES TO VERBAL STIMULI VERY DROWSY OPENS MOUTH ORAL AIRWAY REMOVED. 6L MASK RR EVEN. WHEN PATIENT ASKED IF OK REPORTS "OK" FALLS BACK ASLEEP 6 MASK 100%
--- NOTE | 2021-10-05 13:59 | NUR ---
1315: PT ARRIVES TO DS RM 4 FROM PACU DROWSY. PT AROUSES EASILY WITH VERBAL STIMULATION, RESP EVEN AND UNLABORED. PT STATES MINIMAL PAIN, BUT FEELS NAUSEATED. PT GIVEN EMESIS BAG, ALCOHOL SWAB AND IV ANTIEMETIC; SEE EMAR. PT SPOUSE AT BEDSIDE ON ARRIVAL, PROVIDED PAIN PRESCRIPTION TO TAKE TO PHARMACY. THIS RN WILL ALSO TRY CALLING PHARMACY TO ENSURE THEY ARE ABLE TO FILL TODAY. PT PROVIDED ICED WATER, TOLERATES SMALL SIPS FINE. CALL LIGHT WITHIN REACH.
--- NOTE | 2021-10-05 14:35 | NUR ---
1435: PT WAKES WHEN THIS RN ENTERS THE ROOM. HOLDS APPROPRIATE CONVERSATION. REPORTS IMPROVING NAUSEA AT THIS TIME. NO NEEDS VOICED, CALL LIGHT WITHIN REACH.
--- NOTE | 2021-10-05 14:55 | NUR ---
requested pain rx rates pain 6/10. ate crackers first.
[2021-10-05] MEDS ORDERED: DILAUDID4 MG PO (15:57)
--- NOTE | 2021-10-05 16:17 | NUR ---
1330: PAIN PRESCRIPTION GIVEN TO PT SPOUSE TO TAKE TO PHARMACY. [id number]: PASTOR JACOB IN TO SEE PT. THIS RN STEPS OFF FLOOR FOR LUNCH, VERBAL REPORT GIVEN TO MORAIMA WILEY. [id number]: PT UP TO BATHROOM WITH RN ASSIST. PT STATES, "I AM A LITTLE WOBBY ON A GOOD DAY," HOLDS RN HAND FOR STABILITY. PT ABLE TO VOID APPROXIMATELY 300 MLS YELLOW URINE WITH NO PROBLEMS. PT BACK TO DS RM 4 AND WOULD LIKE TO GET DRESSED TO DC HOME. ENCOURAGED TO PULL CURTAIN OPEN WHEN FINISHED. 1550: DC INSTRUCTIONS PRESENTED TO PT AND SPOUSE AT BEDSIDE VERBALLY AND WRITTEN. PT SPOUSE STATES [facility] CONFIRMED PT PAIN MEDS WOULD BE FILLED TODAY. PT DC VIA WC TO PERSONAL VEHICLE WITH SPOUSE HOME.
--- NOTE | 2021-10-07 08:07 | OR ---
[facility] [address] [place], [place] [address] Signed DATE OF OPERATION: 10/05/2021 SURGEON: Kaya Watts MD PREOPERATIVE DIAGNOSIS: Open wound medial left calf (8 x 15 cm). POSTOPERATIVE DIAGNOSIS: Open wound medial left calf (8 x 15 cm). PROCEDURE: Split-thickness skin grafting from right thigh to the left medial calf. ESTIMATED BLOOD LOSS: Minimal. INDICATIONS: Monico is a 61-year-old obese diabetic female, who developed cellulitis of her left calf a few weeks ago. When she took antibiotics, she had an area 8 x 15 cm that turned black and necrotic. It became quite hard, indurated and leathery. We took her to the operating room. We sharply debrided that area. The underlying adipose tissue was quite healthy. She has been undergoing dressing changes with the help of home healthcare. She has been back to the office and we can see she is feeling very nicely with an excellent better granulation tissue underneath. She was brought to the operating room today for her split-thickness skin grafting. We have reviewed skin grafting in detail. She is aware that the donor site will be much more painful than the calf. She understands there is risk including, but not limited to bleeding, infection, scarring, change in contour of the skin as well as possible need for additional skin grafting. She understands this will be a day surgery and she will go home afterwards. She and her have expressed understanding and agreed to above plan. OPERATIVE REPORT: I met with Monico and her in the preop area. We marked her left leg appropriately. After this, she was taken into the operating room and placed in the supine position under general endotracheal tube anesthesia. She was given preoperative antibiotics along with subcutaneous heparin. An SCD was used on the right lower extremity. Her entire right foot and leg was prepped and draped in the usual sterile fashion. We measured out the wound 8 x 15 cm. That works out to 120 cm2. We used our knife blade and scraped off the top layer of the wound until we were underneath the healthy bleeding granulation tissue. She has a full better granulation tissue at this Electronically Signed By: KAYA WATTS MD 10/07/21 0807 PATIENT NAME: MONICO ALBRIGHT OPERATIVE REPORT DATE OF : 62 REPORT #: [id number] PHYSICIAN: KAYA WATTS MD PCP: NELY VASQUEZ PA-C REPORT IS CONFIDENTIAL AND NOT TO BE RELEASED WITHOUT AUTHORIZATION [facility] [address] [place], [place] [address] Signed time. We then marked an area on her left thigh with the help of the tape measure. The area was covered with mineral oil and we used our Shelly then to extract the split-thickness skin graft measuring 10,000 of an inch. We had used a 10 blade knife to set the Shelly to the appropriate width. The skin graft was then fenestrated to 1.5 to 1. It was then placed onto the wound and stapled in place circumferentially. Two small pieces were cut off the overlapping area and placed inferiorly near the ankle and stapled in place. This gave good coverage of her entire wound bed. This was then covered with Xeroform gauze, dried 4 x 8 gauze, dry ABD, dry 4-inch Kerlix gauze roll and then a 6-inch Nikolay wrap. We had placed epinephrine-soaked gauze on the donor site on the left thigh. That was removed and hemostasis was excellent. This was covered with dry plastic occlusive dressing. After this, Monico was awakened from her anesthesia, extubated in the OR, and taken to the recovery room in stable condition. Kaya Watts MD ALB/MODL /[id number] cc: Kaya Watts MD Copies: KAYA WATTS MD ~ Electronically Signed By: KAYA WATTS MD 10/07/21 0807 PATIENT NAME: MONICO ALBRIGHT OPERATIVE REPORT DATE OF : 62 REPORT #: [id number] PHYSICIAN: KAYA WATTS MD PCP: NELY VASQUEZ PA-C REPORT IS CONFIDENTIAL AND NOT TO BE RELEASED WITHOUT AUTHORIZATION
== END 2021-10-05 16:10 | disposition home or self-care (01) ==
LOC: DS 08:37
PROVIDERS: ATTEND Colon & Rectal Surgery
PROC: 0HRLX74 Replacement of Left Lower Leg Skin with Autologous Tissue Substitute, Partial Thickness, External Approach (ICD-10-PCS; principal; 2021-10-05 10:30)
DX: S81.802A Unspecified open wound, left lower leg, initial encounter (principal); L03.116 Cellulitis of left lower limb; I10 Essential (primary) hypertension; E11.40 Type 2 diabetes mellitus with diabetic neuropathy, unspecified; Z88.5 Allergy status to narcotic agent; Z88.1 Allergy status to other antibiotic agents; Z88.8 Allergy status to other drugs, medicaments and biological substances; E66.9 Obesity, unspecified; Z68.41 Body mass index [BMI] 40.0-44.9, adult; X58.XXXA Exposure to other specified factors, initial encounter
CPT/HCPCS: 00400; J0171; J0690; J1644; J2405; J2704; J7121

== ENCOUNTER 2021-11-21 17:30 | Emergency (ER) | payer BC ==
[~2021-11-21] VITALS: Ht 175.3 cm; Wt 122.6 kg
--- OUTSIDE RECORDS SUMMARY | 2021-11-21 17:32 | XMS ---
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 ECinthya VISIT COUNT (12 MO.) 4 [facility] TOTAL 4 NOTE: Visits indicate total known visits. ED/UCC VISIT TRACKING (12 MO.) 11/21/2021 17:[address] [place] TYPE: Emergency COMPLAINT: - BACK PAIN 09/15/2021 15:37 [facility] [place] TYPE: Emergency COMPLAINT: - L LEG PAIN 09/03/2021 12:[address] [place] TYPE: Emergency COMPLAINT: - HIGH FEVER, COUGH, LEFT LEG SWELLING 04/04/2021 22:[address] [place] TYPE: Emergency COMPLAINT: - BACK PAIN DIAGNOSES: - Low back pain - nursing home (current) use of oral hypoglycemic drugs - Allergy status to narcotic agent - Type 2 diabetes mellitus with diabetic neuropathy, unspecified - Other group home (current) drug therapy - Other chronic pain - Allergy status to other antibiotic agents - Allergy status to other drugs, medicaments and biological substances - Essential (primary) hypertension INPATIENT VISIT TRACKING (12 MO.) 2021 15:[address] OR TYPE: Medical Surgical COMPLAINT: - RECURRENT CELLULITIS LEFT LEG DIAGNOSES: - Essential (primary) hypertension - Chronic pain syndrome - Essential (primary) hypertension - Cellulitis of left lower limb - Chronic pain syndrome - Venous insufficiency (chronic) (peripheral) - Type 2 diabetes mellitus without complications - Type 2 diabetes mellitus without complications 09/03/2021 16:[address] OR TYPE: Medical Surgical COMPLAINT: - CELLULITIS DIAGNOSES: - Acquired absence of other specified parts of digestive tract - Essential (primary) hypertension - Other group home (current) drug therapy - Allergy status to [...] Body mass index [BMI] 38.0-38.9, adult - nursing home (current) use of oral hypoglycemic drugs - nursing home (current) use of oral hypoglycemic drugs - [...] Dorsalgia, unspecified - Thrombocytopenia, unspecified - Other group home (current) drug therapy - Obesity, unspecified - Sepsis, unspecified organism [email or web address]
[2021-11-21] MEDS ORDERED: OXYCODONE HCL5 MG PO (21:09)
[2021-11-21] MEDS ORDERED: ONDANSETRON ODT4 MG PO (21:09)
== END 2021-11-21 21:28 | disposition home or self-care (01) ==
LOC: ED 17:30
DX: M54.6 Pain in thoracic spine (principal); I10 Essential (primary) hypertension; E11.9 Type 2 diabetes mellitus without complications; Z88.5 Allergy status to narcotic agent; Z88.1 Allergy status to other antibiotic agents; Z88.8 Allergy status to other drugs, medicaments and biological substances; Z79.899 Other long term (current) drug therapy; Z79.84 Long term (current) use of oral hypoglycemic drugs
CPT/HCPCS: 96372; 99283; A9270; J1885

== ENCOUNTER 2022-09-14 18:26 | Emergency (ER) | payer BC ==
[~2022-09-14] VITALS: Ht 172.7 cm; Wt 118.4 kg
[~2022-09-14 18:26] MED LIST changes: +ONDANSETRON ODT4 MG PO; +OXYCODONE HCL5 MG PO
--- OUTSIDE RECORDS SUMMARY | 2022-09-14 18:28 | XMS ---
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 ECinthya VISIT COUNT (12 MO.) 3 [facility] TOTAL 3 NOTE: Visits indicate total known visits. ED/UCC VISIT TRACKING (12 MO.) 09/14/2022 18:[address] OR TYPE: Emergency COMPLAINT: - BACK PAIN 11/21/2021 17:[address] [place] TYPE: Emergency COMPLAINT: - BACK PAIN/NON INJURY DIAGNOSES: - Allergy status to narcotic agent - Allergy status to other antibiotic agents - Allergy status to other drugs, medicaments and biological substances - Type 2 diabetes mellitus without complications - Pain in thoracic spine - Essential (primary) hypertension - care home (current) use of oral hypoglycemic drugs - Other superintendent [employer] (current) drug therapy 09/15/2021 15:[address] OR TYPE: Emergency COMPLAINT: - L LEG PAIN INPATIENT VISIT TRACKING (12 MO.) 2021 15:[address] OR TYPE: Medical Surgical COMPLAINT: - RECURRENT CELLULITIS LEFT LEG DIAGNOSES: - Type 2 diabetes mellitus without complications - Chronic pain syndrome - Essential (primary) hypertension - Essential (primary) hypertension - Type 2 diabetes mellitus without complications - Venous insufficiency (chronic) (peripheral) - Cellulitis of left lower limb - Chronic pain syndrome [email or web address]
[2022-09-14] MEDS ORDERED: CLOBETASOL PROP15 G1 TOP (18:51)
[2022-09-14] MEDS ORDERED: FEROSUL325 MG PO (18:51)
[2022-09-14] MEDS ORDERED: POTASSIUM CHLO10 ME2 PO (18:52)
[2022-09-14] MEDS ORDERED: CYCLOBENZAPRINE10 MG PO (20:11)
[2022-09-14] MEDS ORDERED: PERCOCET 5-3251 EACH PO (20:11)
[2022-09-14] MEDS ORDERED: ONDANSETRON ODT8 MG PO (20:11)
== END 2022-09-14 20:33 | disposition home or self-care (01) ==
LOC: ED 18:26
DX: M62.830 Muscle spasm of back (principal); I10 Essential (primary) hypertension; E11.40 Type 2 diabetes mellitus with diabetic neuropathy, unspecified; Z88.1 Allergy status to other antibiotic agents; Z88.5 Allergy status to narcotic agent; Z88.6 Allergy status to analgesic agent; Z88.8 Allergy status to other drugs, medicaments and biological substances; Z79.84 Long term (current) use of oral hypoglycemic drugs; Z79.899 Other long term (current) drug therapy
CPT/HCPCS: 96372; 99283; A9270; J1885

== ENCOUNTER 2022-09-15 07:50 | Day surgery (SDC) | payer BC ==
[~2022-09-15] VITALS: Ht 172.7 cm; Wt 118.6 kg
[~2022-09-15 07:50] MED LIST changes: +CLOBETASOL PROP15 G1 TOP; +FEROSUL325 MG PO; +ONDANSETRON ODT8 MG PO; +POTASSIUM CHLO10 ME2 PO
--- NOTE | 2022-09-15 10:41 | NUR ---
PT ALERT, ORIENTED AND SUPPORTED BY HER STUART. HE WILL RETURN AT AL. HAD PRAYER WITH BOTH, GAVE ENCOURAGEMENT. PT HAD DIFFICULTY WITH PREP, WILL FOLLOW NEEDED
--- NOTE | 2022-09-15 11:10 | NUR ---
09/15/22 1110 Coco Martinez 1106- PT ARRIVES TO PACU REACTIVE TO VOICE. PT FALLS INSTANTLY BACK TO SLEEP WHEN NOT BEING TALKED TO. RESP EVEN AND UNLABORED. OXYGEN SAT HIGH 90'S TO 100% ON 3L VIA CO2 NC.
--- NOTE | 2022-09-19 09:35 | OR ---
[facility] [address] [place], [place] [address] Signed DATE OF OPERATION: 09/15/2022 SURGEON: Lacie Hansen MD PREOPERATIVE DIAGNOSES: 1. Steatohepatitis and probable portal hypertension with splenomegaly. 2. Generalized weakness. 3. Pancytopenia. POSTOPERATIVE DIAGNOSES: 1. Portal hypertensive gastropathy. 2. Esophageal varices grade 2 to 3. 3. Small polyp of rectum (excised). PROCEDURES: 1. Esophagogastroduodenoscopy with biopsy. 2. Total colonoscopy to cecum with cold excision of rectal polyp. ANESTHESIA: Intravenous sedation, fentanyl 150 mcg and Versed 5 mg. INDICATION: This 61-year-old white woman is patient formally of DANIELA and Dr. Grant Springer. She is considered to have pancytopenia with white count of 2700, hemoglobin 10.7, hematocrit 32.4, and a platelet count of 84,000. She is noted to have splenomegaly as well as fatty liver and subsequent clinical findings of steatohepatitis and probable portal hypertension. She has been referred for upper endoscopy and colonoscopy. She last underwent colonoscopy in 2011. The risk of bleeding, infection, and perforation related to upper endoscopy and colonoscopy has been reviewed with her. She understands and wished to proceed. FINDINGS: Upper endoscopy did show esophageal varices. They were not extensive or inflamed particularly but would be considered grade 2 based on the serpiginous nature. She additionally had significant proximal gastropathy consistent with portal hypertension. CLOtest was negative. On colonoscopy, the prep was good. Complete colonoscopy was undertaken to the cecum without question. She did have a small polyp of the rectum, which was excised with cold morcellation technique. Electronically Signed By: LACIE HNASEN MD 09/19/22 0935 PATIENT NAME: MONICO ALBRIGHT OPERATIVE REPORT DATE OF : 62 REPORT #: [id number] PHYSICIAN: LACIE HANSEN MD PCP: MIK MILLER REPORT IS CONFIDENTIAL AND NOT TO BE RELEASED WITHOUT AUTHORIZATION [facility] [address] [place], [place] [address] Signed DESCRIPTION OF PROCEDURE: The patient was brought to the endoscopy suite and placed in the lateral decubitus position, given intravenous sedation to the point of slurred speech and nystagmus with full cardiopulmonary monitoring. She had undergone hypopharyngeal anesthesia with lidocaine spray. Olympus video upper endoscope was passed in the hypopharynx after placement of bite block. The scope was advanced into the esophagus without problem and passed into the stomach. Stomach had prominent rugal folds. The antrum was mildly inflamed. Pylorus was normal. Scope was passed through into the duodenum, which was normal. Biopsies were obtained there. The scope was withdrawn. A biopsy was then taken of the antrum. Retroflexed view showed significant mucosal prominence consistent with portal gastropathy. Biopsies were obtained. The scope was withdrawn in the distal esophagus showed esophageal varices, which were serpiginous, but not numerous and certainly not bleeding. Distal esophageal biopsy was obtained. The scope was withdrawn. There were no other findings. Plans were then made for colonoscopy. Digital rectal examination was normal. Additional sedation was given. The Olympus video colonoscope was passed in the rectum and manipulated throughout the colon ultimately intubating the cecum itself. The scope was withdrawn and examination throughout showed no sign of abnormality into the rectum, a small polyp was noted into the rectum. It was excised. Retroflexed view showed no sign of varices there. The scope was removed and the patient taken to the recovery room in good condition. CONCLUDING DIAGNOSES: 1. Polyp of rectum. 2. Portal gastropathy, proximal stomach and esophageal varices. PLAN: She will return to the ongoing care of Dr. Springer and her primary care provider. Lacie Hansen MD JM/MODL /[id number] Electronically Signed By: LACIE HANSEN MD 09/19/22 0935 PATIENT NAME: MONICO ALBRIGHT OPERATIVE REPORT DATE OF : 62 REPORT #: [id number] PHYSICIAN: LACIE HANSEN MD PCP: MIK MILLER-Arsenio REPORT IS CONFIDENTIAL AND NOT TO BE RELEASED WITHOUT AUTHORIZATION [facility] [address] [place], [place] [address] Signed cc: Grant Springer MD [facility] Copies: GRANT SPRINGER MD ~ Electronically Signed By: LACIE HANSEN MD 09/19/22 0935 PATIENT NAME: MONICO ALBRIGHT OPERATIVE REPORT DATE OF : 62 REPORT #: [id number] PHYSICIAN: LACIE HANSEN MD PCP: MIK MILLER REPORT IS CONFIDENTIAL AND NOT TO BE RELEASED WITHOUT AUTHORIZATION
--- NOTE | 2022-09-20 11:13 | PATH ---
[facility] [address] [facility] [place], [place] [address] Signed SPECIMEN(S): A DUODENAL BIOPSY SPECIMEN(S): B ANTRUM/PYLORUS BIOPSY SPECIMEN(S): C PROXIMAL STOMACH BIOPSY SPECIMEN(S): D LOWER ESOPHAGEAL BIOPSY SPECIMEN(S): E RECTAL POLYP SPECIMEN SOURCE: A. DUODENAL BIOPSY B. ANTRUM/PYLORUS BIOPSY C. PROXIMAL STOMACH BIOPSY D. LOWER ESOPHAGEAL BIOPSY E. RECTAL POLYP CLINICAL HISTORY: Esophagogastroduodenoscopy, colonoscopy. Pre: Anemia. Post: Chronic gastritis, possible esophageal varices, rectal polyp. FINAL PATHOLOGIC DIAGNOSIS: A. Duodenum, biopsy: - No significant histopathology. B. Antrum/pylorus, biopsy: - No significant histopathologic alterations. - Features suggestive of proton pump inhibitor therapy. C. Proximal stomach, biopsy: - No significant histopathologic alterations. - Features suggestive of proton pump inhibitor therapy. D. Lower esophagus, biopsy: - Chronic esophagitis. - No evidence of Carreon's esophagus. E. Rectum, polypectomy: - Hyperplastic polyp, one fragment. - An additional fragment of rectal epithelium is within normal limits. - There is no evidence of dysplasia or malignancy. COMMENT: Regarding specimen A, the sections from the duodenal biopsy show portions of duodenal mucosa with long finger-like villi. There is no villous atrophy, crypt hyperplasia or intraepithelial lymphocytosis, making a diagnosis of celiac disease unlikely. There is no evidence of peptic duodenitis, microorganisms, abnormal infiltrates or neoplasia. PATIENT NAME: ALBRIGHT,MONICO KAREL PATHOLOGY DATE OF : 62 REPORT #: [id number] PHYSICIAN: ALEENA ZUNIGA PCP: MIK MILLER REPORT IS CONFIDENTIAL AND NOT TO BE RELEASED WITHOUT AUTHORIZATION [facility] [address] [place], [place] [address] Signed Regarding specimens B and C, the sections through the gastric biopsies show fragments of oxyntic mucosa that are histologically unremarkable, except for the presence of prominent snouting of the parietal cells. These features are most commonly seen in patients on PPIs. There is no evidence of acute or chronic inflammation. There is no evidence of H. pylori, intestinal metaplasia, abnormal infiltrates or neoplasia. There are no inflammatory, hyperplastic, fundic gland or adenomatous polyps present. Regarding specimen D, the biopsy contains reactive appearing squamous mucosa. It appears acanthotic with marked basal cell hyperplasia. No gastric glandular mucosa is identified. There is chronic inflammation associated with the reactive changes. The changes are nonspecific and can be seen in a variety of settings including infections, gastroesophageal reflux disease or other forms of esophagitis. TWK:[facility]:C2NR MICROSCOPIC EXAMINATION: Histologic sections of all submitted blocks are examined by light microscopy. These findings, together with the gross examination, support the pathologic diagnosis. GROSS DESCRIPTION: Five specimens are received in five containers, labeled "RS." A. The specimen, labeled "RS, duodenum biopsy," is received in formalin and consists of two merlos soft tissue fragments that measure 0.1-0.2 cm in greatest dimension. The specimen is entirely submitted in cassette (A1). B. The specimen, labeled "RS, antrum biopsy," is received in formalin and consists of two merlos soft tissue fragments that measure 0.2 cm in greatest dimension. The specimen is entirely submitted in cassette (B1). C. The specimen, labeled "RS, proximal stomach biopsy," is received in formalin and consists of one merlos soft tissue fragment that measures 0.2 cm in greatest dimension. The specimen is entirely submitted in cassette (C1). D. The specimen, labeled "RS, lower esophagus biopsy," is received in formalin and consists of two merlos soft tissue fragments that measure 0.1-0.4 cm in greatest dimension. The specimen is entirely submitted in cassette (D1). PATIENT NAME: MONICO ALBRIGHT PATHOLOGY DATE OF : 62 REPORT #: [id number] PHYSICIAN: ALEENA ZUNIGA PCP: MIK MILLER REPORT IS CONFIDENTIAL AND NOT TO BE RELEASED WITHOUT AUTHORIZATION [facility] [address] [place], [place] [address] Signed E. The specimen, labeled "RS, rectal polyp," is received in formalin and consists of two merlos soft tissue fragments that measure 0.2 cm in greatest dimension. The specimen is entirely submitted in cassette (E1). JS (under the direct supervision of a pathologist) The Gross Description was prepared using a voice recognition system. The report was reviewed for accuracy; however, sound-alike word errors, addition and/or deletions may occur. If there is any question about this report, please contact Client Services. PERFORMING LABORATORY: The technical component was performed by [facility] [employer], [address] [place] [id number] (CLIA# [id number]). The professional interpretation was performed by [facility], [facility], [address] [place] [address] (CLIA#: [id number]). Diagnostician: Ritchie Bob MD Pathologist Electronically Signed 09/20/2022 Copies: ~ PATIENT NAME: MONICO ALBRIGHT PATHOLOGY DATE OF : 62 REPORT #: [id number] PHYSICIAN: ALEENA PATHOLOGY PCP: MIK MILLER REPORT IS CONFIDENTIAL AND NOT TO BE RELEASED WITHOUT AUTHORIZATION
== END 2022-09-15 12:06 | disposition home or self-care (01) ==
LOC: DS 07:50 → OPS 07:50
PROVIDERS: ATTEND Surgery
PROC: 0DBP8ZX Excision of Rectum, Via Natural or Artificial Opening Endoscopic, Diagnostic (ICD-10-PCS; principal; 2022-09-15 09:15)
PROC: 0DB68ZX Excision of Stomach, Via Natural or Artificial Opening Endoscopic, Diagnostic (ICD-10-PCS; 2022-09-15 09:15)
DX: K75.81 Nonalcoholic steatohepatitis (NASH) (principal); K76.6 Portal hypertension; K31.89 Other diseases of stomach and duodenum; R16.1 Splenomegaly, not elsewhere classified; I85.00 Esophageal varices without bleeding; K62.1 Rectal polyp; K21.00 Gastro-esophageal reflux disease with esophagitis, without bleeding; D61.818 Other pancytopenia; R53.1 Weakness; E66.9 Obesity, unspecified; I10 Essential (primary) hypertension; Z68.39 Body mass index [BMI] 39.0-39.9, adult; Z88.5 Allergy status to narcotic agent; Z88.1 Allergy status to other antibiotic agents; Z88.8 Allergy status to other drugs, medicaments and biological substances
CPT/HCPCS: 99153; G0500; J0690; J2250; J2550; J3010; J7121

== ENCOUNTER 2022-11-01 09:44 | Inpatient (IN) | payer BC ==
[~2022-11-01] VITALS: Ht 172.7 cm; Wt 119.6 kg
[~2022-11-01 09:44] MED LIST changes: -OMEPRAZOLE20 MG PO; +PRILOSEC OTC20 MG PO
--- OUTSIDE RECORDS SUMMARY | 2022-11-01 09:48 | XMS ---
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 ECinthya VISIT COUNT (12 MO.) 3 [facility] TOTAL 3 NOTE: Visits indicate total known visits. ED/UCC VISIT TRACKING (12 MO.) 11/01/2022 09:[address] OR TYPE: Emergency COMPLAINT: - JASONKY, L FOOT/LEG SWOLLEN/RASH, FATIGUED, NAUSEA 09/14/2022 18:[address] [place] TYPE: Emergency COMPLAINT: - BACK PAIN DIAGNOSES: - Allergy status to other antibiotic agents - detention (current) use of oral hypoglycemic drugs - Other penitentiary (current) drug therapy - Allergy status to analgesic agent - Muscle spasm of back - Allergy status to narcotic agent - Essential (primary) hypertension - Allergy status to other drugs, medicaments and biological substances - Type 2 diabetes mellitus with diabetic neuropathy, unspecified 11/21/2021 17:[address] [place] TYPE: Emergency COMPLAINT: - BACK PAIN/NON INJURY DIAGNOSES: - Allergy status to narcotic agent - Allergy status to other antibiotic agents - Allergy status to other drugs, medicaments and biological substances - Type 2 diabetes mellitus without complications - Pain in thoracic spine - Essential (primary) hypertension - detention (current) use of oral hypoglycemic drugs - Other penitentiary (current) drug therapy INPATIENT VISIT TRACKING (12 MO.) No inpatient visits to display in this time frame [email or web address]
[2022-11-01] MEDS ORDERED: NORTRIPTYLINE H10 MG PO (15:53)
[2022-11-01] MEDS ORDERED: METFORMIN HCL500 M1 PO (15:54)
[2022-11-01] MEDS ORDERED: GLIPIZIDE ER2.5 MG PO (15:56)
[2022-11-01] MEDS ORDERED: GABAPENTIN600 MG PO (15:56)
--- NOTE | 2022-11-01 17:30 | NUR ---
IN ROOM TO CHECK ON PT, PT SITTING UP IN BED EATING DINNER. PT DENIES NEEDS AT THIS TIME. CALL LIGHT WITHIN REACH AND PT BELONGINGS AT BEDSIDE.
--- NOTE | 2022-11-01 18:36 | NUR ---
PT ADMITTED THIS AFTERNOON FROM ED WITH CELLULITIS PRESENT ON LEFT CALF AND OPEN WOUND ON OUTER ASPECT OF LEFT GREAT TOE. PER PT, WOUND ON TOE WAS FROM A BLISTER THAT CALLUSED AND WAS REMOVED BY DR NAVARRO ON SUNDAY. PT COMPLAINT OF LEFT LEG PAIN WHILE IN ED, BUT ON ARRIVAL AND DURING PREVIOUS CHECK INS, PT HAS DENIED PAIN. PT RESTING IN BED, CALL LIGHT WITHIN REACH, BEDRAIL UP FOR SAFETY AND PT BELONGINGS AT BEDSIDE. NO FURTHER NEEDS AT THIS TIME.
--- NOTE | 2022-11-01 19:24 | NUR ---
BEDSIDE REPORT WITH DAYSHIFT RN. NOTED CELLULITIS AREA TO LLE AND OPEN WOUND TO MEDIAL FOOT. PATIENT REPORTS PAIN 4/10 ON PAIN SCALE, REPORTS HISTORY OF NEUROPATHY AND ASKING FOR SOMETHING FOR PAIN. ALSO REQUESTED KERRY FELIZ.
--- NOTE | 2022-11-01 19:49 | NUR ---
CALL TO DR. BAINS, REPORTED PATIENT COMPLAINTS OF PAIN AND HISTORY OF NEUROPATHY, NOTED PATIENT TAKES GABAPENTIN ON HOME LIST. CALL TO REQUEST GABAPENTIN. DR. BAINS VERBALIZED WOULD PUT ORDERS IN FOR GABAPENTIN AND OTHER PAIN MEDICATION. UPDATED PATIENT ON POC. PROVIDED KERRY FELIZ, NOTED CBG 105 AT DINNER TIME.
--- NOTE | 2022-11-01 22:33 | NUR ---
Fresh ice water. Used restroom and back to bed. call ligh within reach. Positioned left leg on pillow.
--- NOTE | 2022-11-02 00:19 | NUR ---
PHONE CALL TO DR. BAINS, NOTIFIED RECHECKING PATIENT TEMP AFTER ADMINISTERING TYLENOL 650 MG PO, NOT EFFECTIVE. FEVER INCREASED TO 101.5 F. PATIENT HAS BEEN USING INCENTIVE SPIROMETER, AND DEMONSTRATES ABILITY TO COUGH AND DEEP BREATH. NOTED TO DR. BAINS LEFT LOWER EXTREMITY PAINFUL AND HOT TO TOUCH, ESPECIALLY AROUND LEFT DISTAL CALF AREA. PATIENT SIGNED CONSENT FOR PICTURES TO BE TAKEN IN CHART. PICTURES AND MEASUREMENTS COLLECTED. CHANGED DRESSING PER PATIENT REPORTED REGIME WITH DR. GARCIA, WOUND CONSULT COMPLETED, SEE COMPLEX WOUND ASSESSMENT FOR FURTHER DETAILS.
--- NOTE | 2022-11-02 00:47 | NUR ---
ADMINISTERED IV TORADOL PER JAN. PATIENT AWAKES TO VERBAL STIMULI, SKIN WARM TO TOUCH. NO OTHER NEEDS AT THIS TIME. CALL LIGHT WITHIN REACH. LIGHTS DIM.
--- NOTE | 2022-11-02 02:17 | NUR ---
PATIENT AWAKES TO VERBAL STIMULI. APPEARS TO BE BREATHING EVEN AND REGULAR, 02 SAT 95% ON ROOM AIR. ADMINISTERED IV VANCO PER JAN. IV FLUSHED TO LEFT UPPER ARM FLUSHES WELL. VS WNL. REDNESS TO LLE APPEARS TO BE RECEDING FROM OUTLINE TRACED. REINFORCED DRESSING TO LEFT FOOT WITH GAUZE BANDAGE AND TAPE, ALLEVYN APPEARED TO BE PEELING OFF WITH FRICTION FROM COVERS. PATIENT AFEBRILE 98.5 ORAL, TORADOL EFFECTIVE WITH TREATING FEVER.
--- NOTE | 2022-11-02 04:03 | NUR ---
PATIENT APPEARS TO BE RESTING, LLE ELEVATED ON PILLOW. APPEARS CALM, NO NEEDS WITH NURSE ROUNDING. CALL LIGHT WITHIN REACH
--- NOTE | 2022-11-02 07:15 | NUR ---
REPORT RECEIVED FROM JUSTIN VALERA, ALL QUESTIONS ANSWERED. PT AWAKE IN BED, DENIES NEEDS AT THIS TIME. CALL LIGHT IN REACH.
--- NOTE | 2022-11-02 08:50 | NUR ---
MORNING ASSESSMENT COMPLETE. PT SITTING UP IN BED EATING BREAKFAST. DENIES PAIN AT THIS TIME. LLE ELEVATED ON PILLOWS. DRESSING TO L FOOT CDI. OUTLINED REDDENED AREA TO LLE APPEARS TO BE IMPROVING SLIGHTLY. CONTINUES TO BE HOT TO THE TOUCH. 2+ EDEMA TO LLE. PT DENIES NEEDS AT THIS TIME. CALL LIGHT IN REACH.
--- NOTE | 2022-11-02 10:20 | NUR ---
DID HER BLOOD SUGAR CHECK. ALSO WHEN I WENT IN TO DO HER VITALS. DR. NAVARRO FOLLOWED ME IN.
--- NOTE | 2022-11-02 10:21 | NUR ---
RYAN JACOB IS VISITING PATIENT RIGHT NOW.
[2022-11-02] MEDS ORDERED: PROMETHAZINE C PO (10:41)
[2022-11-02] MEDS ORDERED: ONDANSETRON HCL8 MG PO (10:42)
[2022-11-02] MEDS ORDERED: ESTRADIOL10 MCG VAGINAL (13:02)
[2022-11-02] MEDS ORDERED: CHLORHEXIDINE473 ML MM (13:03)
[2022-11-02] MEDS ORDERED: CLINPRO 5000113 GM MM (13:04)
--- NOTE | 2022-11-02 13:05 | NUR ---
MED REC COMPLETE
--- NOTE | 2022-11-02 14:00 | NUR ---
Spoke with Christi. She cont. to live in a home with her spouse. 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 She has a boot she use at times. She has chronic foot wound and states its been 1 year since her last admission. She states Dr. Trevino saw her earlier today. She plans on dc to home with family and denies needs to discharge when medically cleared.
--- NOTE | 2022-11-02 14:17 | NUR ---
AFTERNOON ASSESSMENT COMPLETE. REDDENED AREA TO LLE ADVANCED SLIGHTLY PAST OUTLINED AREA, NEW OUTLINED MARKED. LLE 2+ EDEMA, HOT TO TOUCH, ELEVATED ON PILLOWS. PT C/0 5/10 PAIN. GIVEN PRN TYLENOL. PT DENIES FURTHER NEEDS AT THIS TIME. CALL LIGHT IN REACH.
--- NOTE | 2022-11-02 14:40 | NUR ---
PT HERE AGAIN FOR CELLULITIS. PT EXPRESSED FRUSTRATION AT REOCCURANCE. HAS MAKE SOME CHANGES SHE HOPE WOULD MAKE A DIFFERENCEGAVE ENCOURAGEMENT, WE DISCUSSED MAYBE VISIT WITH DR ROWLAND OR HARIS[facility]. CHECKING ON ANY DRUG ISSUES. PT GAVE ME PERMISSON TO SHARE WITH BOTH. GAVE G.POST, OFFERED PRAYER AND HER STUART CAME FOR VISIT. SHARED HER CONCERNS WITH DR ROWLAND, HE WILL FOLLOW UP
--- NOTE | 2022-11-02 22:00 | NUR ---
FULL BODY ASSESSMENT DONE. CELLULITIS TO LEFT LOWER LEG APPEARS TO BE IMPROVING. PATIENT ELEVATING ON PILLOW. SLIDING SCALE PROVIDED FOR CBG 141 SLIDING SCALE PER MAR. PROVIDED HS CARE. NO OTHER NEEDS AT THIS TIME.
--- NOTE | 2022-11-03 02:15 | NUR ---
VANCO IV INFUSING. PATIENT RESTING WITH EYES CLOSED, APPEARS CALM AND RELAXED. AWAKES TO VERBAL STIMULI. EVEN AND REGULAR CHEST RISE. RR 20. APPEARS TO HAVE NO NEEDS AT THIS TIME. CALL LIGHT WITHIN REACH.
--- NOTE | 2022-11-03 05:46 | NUR ---
FULL BODY ASSESSMENT DONE, NO ACUTE CHANGES. DRESSING TO LEFT FOOT INTACT. CELLULITIS APPEARS TO IMPROVE. PATIENT REPORTS SLEEPING WELL THROUGHOUT NIGHT. UP TO BATHROOM, STEADY ON FEET. PAIN WELL CONTROLLED. LUNG SOUNDS CLEAR. ADMINISTERED MORNING MEDICATIONS PER JAN, PATIENT NOW SL.
--- NOTE | 2022-11-03 08:32 | NUR ---
Patient in bed watching tv, no distress. Left foot dressing is CDI at this time. CMS intact to LLE, redness noted within marked borders. Per pt, she states cellulitis appears to be receding. LLE us warm to touch within marked borders. Tylenol 650mg po admin at this time for reports of 5/10 LLE pain. No current needs, personal supplies and call light within reach.
--- NOTE | 2022-11-03 10:14 | NUR ---
PER AM MEETING POSSIBLE DISCHARGE TO HOME TODAY. NO CHANGE IN DISCHARGE PLAN AT THIS TIME.
--- NOTE | 2022-11-03 11:21 | NUR ---
PT ALERT, ORIENTED AND TRYING HARD TO HAVE A POSITIVE ATTITUDE-TI IS URSULA. HOPING SHE WILL BE HOME BEFORE URSULA. HAD GOOD VISIT WITH PT. WILL FOLLOW JNENY
--- NOTE | 2022-11-03 15:17 | NUR ---
PATIENT SLEEPING IN BED AT THIS TIME, EYES CLOSED, RESPIRATIONS NON LABORED. PATIENT HAS NO DISTRESS. IV SITE PATENT, ABX INFUSING PER PROVIDER ORDER. CALL LIGHT WITHIN REACH.
--- NOTE | 2022-11-03 17:11 | NUR ---
IV site infiltrated. Patient requesting to eat dinner before attempting a new IV site. Dinner to patient at this time. Call light within reach.
--- NOTE | 2022-11-03 17:44 | NUR ---
THIS RN TO ROOM TO ASSIST WITH IV START. IV STARTED PER PROTOCOL TO RIGHT HAND, BRISK BLOOD RETURN NOTED. IV ABX RESTARTED (SEE MAR). PTS PRIMARY RN UPDATED. PT EATING DINNER. NO ADDITIONAL REQUESTS OR COMPLAINTS. CALL LIGHT WITHIN REACH.
--- NOTE | 2022-11-03 19:15 | NUR ---
REPORT RECEIVED FROM BLANCA VALERA, ALL QUESTIONS ANSWERED.
--- NOTE | 2022-11-03 21:15 | NUR ---
ASSESSMENT COMPLETE. PT AWAKE IN BED, DENIES PAIN AT THIS TIME. REDNESS TO LEFT LEG REDUCED FROM PREVIOUSLY OUTLINED AREA, WARM TO THE TOUCH. LEFT LEG ELEVATED ON PILLOWS. PT DENIES FURTHER NEEDS AT THIS TIME. CALL LIGHT IN REACH.
--- NOTE | 2022-11-04 00:41 | NUR ---
PATIENT RESTING IN BED WITH EYES CLOSED. BREATHING EVEN AND REGULAR. APPEARS TO HAVE NO NEEDS AT THIS TIME.
--- NOTE | 2022-11-04 03:17 | NUR ---
PATIENT RESTING WITH EYES CLOSED. PROVIDED FRESH ICE WATER. APPEARS TO HAVE NO OTHER NEEDS AT THIS TIME.
--- NOTE | 2022-11-04 05:47 | NUR ---
ADMINISTERED ANTIBIOTICS PER MAR, PATIENT AWAKE. REPORTS SLEPT WELL, NO PAIN AT THIS TIME. NO OTHER NEEDS, CALL LIGHT WITHIN REACH.
--- NOTE | 2022-11-04 07:44 | NUR ---
RECIEVED SHIFT REPORT. PT AWAKE IN BED, DENIES FURTHER NEEDS. CALL LIGHT WITHIN REACH.
--- NOTE | 2022-11-04 09:20 | NUR ---
MORNING ASSESSMENT COMPLETE. PT RESTING IN BED, AWAKE. DENIES PAIN. NO CHANGES WITH LEFT LOWER EXT. LEG IS WARM TO THE TOUCH, AND PINK. DRESSING ON LEFT FOOT IS C/D/I. CALL LIGHT WITHIN REACH
[2022-11-04] MEDS ORDERED: CEFDINIR300 MG PO (09:25)
[2022-11-04] MEDS ORDERED: DOXYCYCLINE HY100 MG PO (09:26)
--- NOTE | 2022-11-04 12:41 | NUR ---
TOOK PATIENT'S IV OUT. DID DISCHARGE VITALS. PATIENT IS GETTING DRESSED WILL CALL WHEN SHE IS READY.
--- NOTE | 2022-11-13 15:24 | NUR ---
SPOKE WITH PATIENT BY PHONE FOR POST DISCHARGE CALL. PATIENT FEELS SHE IS SLOWLY IMPROVING. LEG IS LESS SWOLLEN, NO FEVERS. SAW DR NAVARRO ALREADY WHO THOUGHT THINGS LOOKED GOOD. HAS APPT WITH PCP 11/15/22. HAS TRANSPORTATION. STATES SHE FELT WELL EDUCATED HERE BY STAFF NURSES AND PHARMACY ON MEDICATIONS AND SIDE EFFECTS. SHE HAS FINISHED ANTIBIOTICS. SHE HAS NO CONCERNS AT THIS TIME. SHE KNOWS TO CALL PCP OR RETURN TO ED FOR WORSENING SYMPTOMS.
== END 2022-11-04 12:50 | disposition home or self-care (01) | DRG 863 ==
LOC: ED 09:44 → MS 09:47 → ED 09:47 → MS 11-03 17:31
PROVIDERS: ADMIT Family Medicine; ATTEND Family Medicine
DX: T81.49XA Infection following a procedure, other surgical site, initial encounter (principal); L03.116 Cellulitis of left lower limb; D61.818 Other pancytopenia; E87.29 Other acidosis; Z20.822 Contact with and (suspected) exposure to COVID-19; I10 Essential (primary) hypertension; E87.6 Hypokalemia; E11.40 Type 2 diabetes mellitus with diabetic neuropathy, unspecified; G89.29 Other chronic pain; M54.9 Dorsalgia, unspecified; Z96.652 Presence of left artificial knee joint; Z90.710 Acquired absence of both cervix and uterus; Z90.49 Acquired absence of other specified parts of digestive tract; Z88.5 Allergy status to narcotic agent; Z88.6 Allergy status to analgesic agent; Z88.8 Allergy status to other drugs, medicaments and biological substances; Z79.84 Long term (current) use of oral hypoglycemic drugs; Z79.899 Other long term (current) drug therapy; Y83.8 Other surgical procedures as the cause of abnormal reaction of the patient, or of later complication, without mention of misadventure at the time of the procedure
CPT/HCPCS: 36415; 80053; 80202; 81001; 82607; 82746; 83605; 83735; 84100; 85025; 85060; 85610; 85730; 87040; 87070; 87075; 87186; 87205; 87502; 93971; A9270; J0690; J1644; J1815; J1885; J2405; J3370; J7030; J7060; U0003

== ENCOUNTER 2023-04-02 21:44 | Emergency (ER) | payer BC ==
[~2023-04-02] VITALS: Ht 172.7 cm; Wt 122.5 kg
[~2023-04-02 21:44] MED LIST changes: +CEFDINIR300 MG PO; +CHLORHEXIDINE473 ML MM; +CLINPRO 5000113 GM MM; +ESTRADIOL10 MCG VAGINAL; +GABAPENTIN600 MG PO; +GLIPIZIDE ER2.5 MG PO; +METFORMIN HCL500 M1 PO; +NORTRIPTYLINE H10 MG PO; +ONDANSETRON HCL8 MG PO; +PROMETHAZINE C PO
--- OUTSIDE RECORDS SUMMARY | 2023-04-02 21:46 | XMS ---
PreManage Notification: MONICO ALBRIGHT Security [employer] Events No recent Security Events currently on file CRITERIA MET - PDMP CARE PROVIDERS Yane RosarioP-C Nurse Practitioner: Current PHONE: [phone] Jillian has no Care Guidelines for this patient. ECinthya VISIT COUNT (12 MO.) 2 [facility] TOTAL 2 NOTE: Visits indicate total known visits. ED/UCC VISIT TRACKING (12 MO.) 04/02/2023 21:[address] [place] TYPE: Emergency COMPLAINT: - MID BACK PAIN 09/14/2022 18:[address] [place] TYPE: Emergency COMPLAINT: - BACK PAIN DIAGNOSES: - Allergy status to analgesic agent - Allergy status to narcotic agent - Allergy status to other antibiotic agents - Allergy status to other drugs, medicaments and biological substances - Essential (primary) hypertension - assisted (current) use of oral hypoglycemic drugs - Muscle spasm of back - Other custodial (current) drug therapy - Type 2 diabetes mellitus with diabetic neuropathy, unspecified INPATIENT VISIT TRACKING (12 MO.) 11/03/2022 17:[address] [facility] [place] TYPE: Medical Surgical COMPLAINT: - CELLULITIS DIAGNOSES: - Acquired absence of both cervix and uterus - Acquired absence of both cervix and uterus - Acquired absence of other specified parts of digestive tract - Acquired absence of other specified parts of digestive tract - Allergy status to analgesic agent - Allergy status to analgesic agent - Allergy status to narcotic agent - Allergy status to narcotic agent - Allergy status to other drugs, medicaments and biological substances - Allergy status to other drugs, medicaments and biological substances - Cellulitis of left lower limb - Contact with and (suspected) exposure to COVID-19 - Contact with and (suspected) exposure to COVID-19 - Dorsalgia, unspecified - Dorsalgia, unspecified - Essential (primary) hypertension - Essential (primary) hypertension - Hypokalemia - Hypokalemia - Infection following a procedure, other surgical site, initial encounter - assisted (current) use of oral hypoglycemic drugs - assisted (current) use of oral hypoglycemic drugs - Other acidosis - Other acidosis - Other chronic pain - Other chronic pain - Other custodial (current) drug therapy - Other engineering intern (current) drug therapy - Other pancytopenia - Other pancytopenia - Other surgical procedures as the cause of abnormal reaction of the patient, or of later complication, without mention of misadventure at the time of the procedure - Presence of left artificial knee joint - Presence of left artificial knee joint - Type 2 diabetes mellitus with diabetic neuropathy, unspecified - Type 2 diabetes mellitus with diabetic neuropathy, unspecified [email or web address]
[2023-04-02] MEDS ORDERED: CYCLOBENZAPRINE10 MG PO (23:41)
[2023-04-03 00:06] VITALS: BP 151/77
== END 2023-04-03 00:07 | disposition home or self-care (01) ==
LOC: ED 21:44
DX: M54.50 Low back pain, unspecified (principal); I10 Essential (primary) hypertension; E11.9 Type 2 diabetes mellitus without complications; Z96.653 Presence of artificial knee joint, bilateral; Z88.5 Allergy status to narcotic agent; Z88.8 Allergy status to other drugs, medicaments and biological substances; Z79.899 Other long term (current) drug therapy; Z79.84 Long term (current) use of oral hypoglycemic drugs
CPT/HCPCS: 99283

== ENCOUNTER 2025-06-01 10:24 | Emergency (ER) | payer OTHER ==
[~2025-06-01] VITALS: Ht 172.7 cm; Wt 121.0 kg
[2025-06-01] MEDS ORDERED: IRBESARTAN150 MG PO (10:43)
[2025-06-01] MEDS ORDERED: DOXYCYCLINE HY100 M3 PO (10:45)
[2025-06-01] MEDS ORDERED: AMOX TR-K CLV1 EAC1 PO (11:28)
[2025-06-01 13:14] VITALS: BP 127/63
== END 2025-06-01 13:13 | disposition home or self-care (01) ==
LOC: ED 10:24
DX: L03.115 Cellulitis of right lower limb (principal); I10 Essential (primary) hypertension; E11.40 Type 2 diabetes mellitus with diabetic neuropathy, unspecified
CPT/HCPCS: 99283